=== PATIENT | female | born 1955 | race Caucasian/White ===

== ENCOUNTER 2016-11-01 13:17 | Inpatient (IN) | payer BC ==
[~2016-11-01] VITALS: Ht 154.9 cm; Wt 94.2 kg
--- NOTE | ~2016-11-01 | CON ---
PATIENT'S NAME: BORA CARRINGTON [facility] AGE: 61 Y [address] ROOM: G6325 [place], [place] [address] LOCATION: GPCU ADMIT DATE: 11/01/2016 Consultation DISCHARGE DATE: FAMILY PHYSICIAN: PHYSICIAN, UNKNOWN ATTENDING PHYSICIAN: MATIAS MIRANDA DATE OF CONSULTATION: 11/07/2016 REFERRING PHYSICIAN: Cuba Ramos MD LOCATION: [id number]. REASON FOR CONSULTATION: This is a Palliative Care referral for goals of care, code status, and hospice discussion. HISTORY OF PRESENT ILLNESS: This 61-year-old female was admitted on 11/01/2016 with acute mental status change. She has a history of diabetic peripheral neuropathy with multiple diabetic wounds. Wound ostomy nurses were seeing her for a sacral wound. She has a known history of endometrial cancer, has been seen at the [facility] and she has a history of bilateral BKA. The patient had been declining after [place] and had not been going to work due to her electric wheelchair not working and had been at home, declining, not eating per her friend who comes and checks on her. The patient had not been seen for a couple of days and neighbor went to check on her and found her very confused and she was sent to the [facility] for evaluation. She was seen by the neurologist on 11/03/[address] Canseco who evaluated her decrease in mental status and possible stroke on the posterior portion of the brain. On admission, the patient did not have any fevers and continued to be confused. She was started on broad-spectrum antibiotics and was being evaluated for acute stroke in the harry-occipital area. Neurology, Dr. Canseco had seen and there was no finding for the patient's altered mental status. CT of the abdomen and pelvis was done that revealed multiple metastatic lesions in the liver and increased ascites. Paracentesis was done on November 01, no peritonitis noted and culture was negative. Infectious Disease consultation was also done to evaluate antibiotics and infection. The patient does open eyes; does not track; does moan as if in pain; unable to answer questions appropriately; is able to blink her eyes on command 1 time, but not consistently; has a very weak squeeze in left hand, but not consistently; right arm is flaccid. No nausea or vomiting. No shortness of breath noted. PAST MEDICAL HISTORY: Diabetes, status post bilateral BKA, endometrial cancer, depression, anxiety, and status post hysterectomy. PATIENT'S NAME: BORA CARRINGTON [facility] AGE: 61 Y [address] ROOM: G63[address] [place], [place] [address] LOCATION: GPCU ADMIT DATE: 11/01/2016 Consultation DISCHARGE DATE: FAMILY PHYSICIAN: PHYSICIAN, UNKNOWN ATTENDING PHYSICIAN: MATIAS MIRANDA SOCIAL HISTORY: The patient lives on her own. Works at [employer] in the [employer] 3 days a week. She is a smoker, unknown amount, had told by wound care ostomy nurses that she does not smoke, friend says she does and he does not know how much, she continues to smoke. No alcohol history. FAMILY HISTORY: Unable to obtain records. None on chart. CURRENT MEDICATIONS: 1. Insulin detemir 8 units daily subcutaneous, moderate sliding scale insulin. 2. Lactulose 30 mL every 8 hours p.r.n. 3. Rifaximin 550 mg b.i.d. 4. Protonix 40 mg daily. 5. Peridex t.i.d. REVIEW OF SYSTEMS: Complete review of systems was done, chart was reviewed, unable to obtain all due to the patient's decrease in cognitive status. PHYSICAL EXAMINATION: GENERAL: This is a 61-year-old, frail female, in no acute distress. VITAL SIGNS: Temperature 97.7 axillary, pulse 82, respirations 12, blood pressure 120/63. She is 5 feet 1 inch, weighs 207 pounds with BMI of 37.5. GENERAL: Arouses to stimuli, occasional moan. No verbal response. Appears to have some grimacing and discomfort. Moans with movement. SKIN: Warm and dry. Color pale. HEENT: Normocephalic and atraumatic. Sclerae are nonicteric. Conjunctivae are pale and pink. Mouth is pink and dry. Some exudate noted. LYMPH: No cervical adenopathy or thyromegaly. RESPIRATORY: Clear to auscultation. Breath sounds even and regular throughout. CARDIAC: S1, S2 without murmurs. No bruits. ABDOMEN: Soft, nontender. Positive bowel tones. Last bowel movement was 11/07, had several bowel movements after lactulose was given. NEURO: Slow to respond. No verbal response. Slow to follow any commands and not consistent. MUSCULOSKELETAL: Some slow movement of left arm. Right arm is flaccid. EXTREMITIES: Bilateral BKA, incisions well healed. No redness or edema. Palliative performance scale is 10%, totally bed-bound, unable do any activity, total care, mouth care only, drowsy. PATIENT'S NAME: BORA CARRINGTON [facility] AGE: 61 Y [address] ROOM: [address] [address] LOCATION: GPCU ADMIT DATE: 11/01/2016 Consultation DISCHARGE DATE: FAMILY PHYSICIAN: PHYSICIAN, UNKNOWN ATTENDING PHYSICIAN: MATIAS MIRANDA IMPRESSION: Altered mental status/acute encephalopathy and pain. PLAN: 1. Discussion of chronic condition. Visited with the patient's brother, Caleb Carrington, by phone, phone number is [phone]; discussed knowledge and understanding of the patient's current condition. He had talked with Dr. Ramos, oncologist, extensively yesterday, has been in touch with Dr. Chavis. He has a fairly good understanding of the altered mental status, treating infections, not getting better. He knows about her history of endometrial cancer and diabetes and recent BKA due to peripheral neuropathy. Discussed CT of the abdomen and pelvis and multiple metastatic liver lesions, the patient not eating, the patient not improving with treatment. Overall, he has a very good understanding of the patient's condition and prognosis. 2. Code status and advance directive. The patient is currently a full code. Discussed the patient's values and goals and wishes if with increased metastasis and the patient not waking up. Brother states that he has talked with his sister about her wishes if she would be in the state of not getting better and not being able to wake up that she would not want to live on tubes and would not like having no quality of life. Brother will fax copy of living will to the hospital. GOALS OF CARE: 1. Brother would like to talk with the hospitalist more on condition improving versus going to the [facility] to see if there were other alternatives. 2. Continue treating till talks with the hospitalist. 3. Education given on disease process, prognosis, comfort cares, hospice. 4. No spiritual needs. RECOMMENDATIONS: Possible pain with movement and grimacing, recommended starting on acetaminophen 650 mg every 6 hours p.r.n. pain. We will check with pharmacy due to the patient stating allergic to acetaminophen IV. Pharmacy stated they only had Vicodin down as an allergy for the patient; Home Health had penicillin, erythromycin, morphine, codeine, hydrocodone, acetaminophen, and shellfish. They consider trying acetaminophen to see it if it just upset her stomach or if there was a true allergy to acetaminophen and notes it stated she just had an upset stomach. Encourage brother to call if questions or concerns. Total time was 55 minutes with 45 minutes for counseling and coordination of care. PATIENT'S NAME: BORA CARRINGTON [facility] AGE: 61 Y [address] ROOM: [id number] [place] [id number] [facility] ADMIT DATE: 11/01/2016 Consultation DISCHARGE DATE: FAMILY PHYSICIAN: PHYSICIAN, UNKNOWN ATTENDING PHYSICIAN: MATIAS MIRANDA Thank you for allowing me to assist this patient and family. CONNIE MENDENHALL NP FOR MD JODEE POLLARD/wilder /[id number] d: 11/07/162025 t: 11/21/160, CONSULTATION REPORT
--- NOTE | ~2016-11-01 | CON ---
PATIENT'S NAME: TANA CARRINGTON [facility] AGE: 61 Y [address] ROOM: [address] [place], [place] [address] LOCATION: GPCU ADMIT DATE: 11/01/2016 Consultation DISCHARGE DATE: FAMILY PHYSICIAN: PHYSICIAN, UNKNOWN ATTENDING PHYSICIAN: MATIAS MIRANDA DATE OF CONSULTATION: 11/03/2016 The patient was seen in neurologic consultation on 11/03/2016. REASON FOR CONSULTATION: I was asked to see Ms. Carrington by the hospitalist, Dr. Chavis. This patient has essentially an unknown medical history, but is known to have diabetes. HISTORY OF PRESENT ILLNESS: She is a 61-year-old female patient who lives alone. Apparently, she had not had any contact with family or friends and thus police came to her apartment to see how she was doing. She apparently was found unresponsive, very much like she presented here to our hospital. Also, she has smelled of urine, apparently had wet herself. When they found her, she was sitting in the chair and had not fallen. There is no evidence of injury to her body. When she was transported here to our hospital, a workup ensued, which showed that she had a mild white count elevation with a urinalysis strongly showing urinary tract infection. Furthermore, cultures have come back with Enterococcus and Klebsiella infection, thus she is on day 2 of antibiotics for treating a urosepsis. She has been essentially poorly responsive and extremely tired. She is not moving her bilateral upper extremities even to pain, but does open her eyes somewhat spontaneously. She is not answering questions or following commands, mostly moaning. She was tending to blink to threat in her left visual field, but not in her right. An initial CAT scan of her brain was performed and it was negative for any intracranial process; however, an MRI followed as she was not improving, which does show some serpiginous-like increase in signal on diffusion-weighted imaging. This was seen in the posterior parietal and somewhat into the occipital lobe of the left portion of the brain. The exact vascular territory is unclear as this somewhat straddles the area of both GROCERY CLERK CHECKING and posterior left MCA territory. The findings on diffusion-weighted imaging do seem to be somewhat superficial and high cortical in nature and do not seem to have a very confluent periods. In discussions with Dr. Chavis, I described that these symptoms of stroke would probably not match well with the patient being so obtunded and encephalopathic, as this is one-sided stroke, likely more involving visual field loss and hard to delve with her having such a poor mental status. I would favor that the patient likely still has a urosepsis-type picture. PATIENT'S NAME: TANA CARRINGTON [facility] AGE: 61 Y [address] ROOM: [id number] [place] [id number] LOCATION: GPCU ADMIT DATE: 11/01/2016 Consultation DISCHARGE DATE: FAMILY PHYSICIAN: PHYSICIAN, UNKNOWN ATTENDING PHYSICIAN: MATIAS MIRANDA PRIOR MEDICAL HISTORY: She has a known history of diabetes and likely diabetic ulcers and wounds as well as diabetic neuropathy. Endometrial cancer, unknown if this is metastatic. A questionable history of atrial fibrillation. MEDICATIONS: Currently include, 1. Vancomycin 1.5 g IV q.18 hours. 2. Levofloxacin 750 mg IV daily. 3. Enoxaparin 40 mg subcu daily. 4. Pantoprazole 40 mg IV daily. 5. Regular insulin sliding scale q.6 hours. FAMILY HISTORY: Unobtainable. SOCIAL HISTORY: Very limited, we know that she lives alone. There is no known alcohol abuse. The son was spoken to gave little more information concerning a prior medical history. REVIEW OF SYSTEMS: The patient presented obtunded, likely with a picture of urosepsis. She has slight white count elevation. A complete metabolic panel reveals a creatinine to be normal. There is elevation in AST as well as alkaline phosphatase consistent with possibility of metastatic disease to the liver that was seen on a hepatic ultrasound. Troponin, troponin, CPK total, and CPK-MB were all negative. TSH and hemoglobin A1c were within normal limits. The rest of the review of systems was limited due to essentially unknown medical history other than her known diabetes. PHYSICAL EXAMINATION: GENERAL: The patient was alerting only to a strong sternal rub. She would open her eyes briefly, look forward mostly, and moan. She did not activate her extremities, she did not squeeze my hand on command. She seemed to blink to threat, mostly in her left visual field, not in her right. She had normal tone. VITAL SIGNS: Stable. IMPRESSION: Neurologically, this 61-year-old patient who essentially remains with a poor mental status though she is 2 days into receiving antibiotics for urinary tract infection. The leading issue for her mental status being so poor is likely still the result of this infection. I reviewed over the findings on the MRI with Dr. Chavis. The findings do not quite explain her mental status PATIENT'S NAME: TANA CARRINGTON [facility] AGE: 61 Y [address] ROOM: [place] [address] [facility] ADMIT DATE: 11/01/2016 Consultation DISCHARGE DATE: FAMILY PHYSICIAN: PHYSICIAN, UNKNOWN ATTENDING PHYSICIAN: MATIAS MIRANDA being obtunded and with a stroke to the posterior portion of the brain, particularly the occipital lobe and posterior parietal region, this would have more of an affect on her vision than on her level of alertness. It is quite possible that these MRIs under-showing some more involvement of the brain in a confluent stroke. Because of the nature of a background malignancy, we should do an MRV, venogram of the brain to rule out any evidence of a cortical venous thrombosis in the brain. Furthermore, let us get an MRA of the brain to look for any evidence of a focal stenosis to the intracranial blood vessels of the left MCA or left GROCERY CLERK CHECKING region. I do believe that with time, the patient will likely improve her mental status, as her other findings on laboratory results do seem to be quite stable. Continue to follow up with the Hospitalist team concerning Ms. Tana Carrington's neurologic status. MD YASEMIN STEELE/wilder /[id number] d: 11/03/162012 t: 11/07/16 1411, CONSULTATION REPORT
--- NOTE | ~2016-11-01 | CON ---
PATIENT'S NAME: BORA CARRINGTON [facility] AGE: 61 Y [address] ROOM: [address] [place], [place] [address] LOCATION: GPCU ADMIT DATE: 11/01/2016 Consultation DISCHARGE DATE: FAMILY PHYSICIAN: PHYSICIAN, UNKNOWN ATTENDING PHYSICIAN: MATIAS MIRANDA DATE OF CONSULTATION: 11/07/2016 REFERRING PHYSICIAN: Cuba Ramos MD REASON FOR CONSULTATION: Hypernatremia. REFERRING PHYSICIAN: Dr. Haley Chavis. HISTORY OF PRESENT ILLNESS: A 61-year-old lady with history of endometrial/endometrioid cancer with peritoneal and hepatic invasion, admitted to our hospital after she was found unresponsive. While being managed in the PCU, her sodium slowly increased to 154. Nephrology consultation has been called for similar reason. As per the chart record, she has not had any contact with family or friends for the last couple of days before admission, and police came to her apartment and was found her unresponsive down for at least few days, smelled of urine, no evidence of injury to the body, transported her to the hospital, showed a mild white blood cell count elevation, possibly secondary to urosepsis. Culture came back Enterococcus and Klebsiella, got treated with antibiotic, however, the patient's mental status did not improve with the treatment. Afterwards, the patient had an MRI, which showed left hippocampal and occipital stroke, but that stroke would not explain the degree of altered mental status/confusion. Otherwise, she is hemodynamically stable, not on any feeding. She was thought to have significant metabolic encephalopathy/hepatic encephalopathy from metastatic disease from the endometrial cancer and was started on lactulose for the last few days and was getting severe amount of osmotic diarrhea therapeutically to improve the mental status. However, till now, there was no significant improvement. Meanwhile, the sodium, which was 143, 144 a couple of days ago, now has increased to 154. The patient is currently not on tube feeding as mentioned above. No other significant medications noted or not on diuretic. The patient is completely confused, even withdraws to pain on the right side but does not do anything on the left. No response to voice call. REVIEW OF SYSTEMS: Could not be obtained due to the patient's mental status. PAST MEDICAL HISTORY: Endometrial cancer. The rest of the medical history could not be obtained due to the patient's mental status. PAST SURGICAL HISTORY: Could not be obtained due to mental status. FAMILY HISTORY: Could not be obtained due to the patient's mental status. SOCIAL HISTORY: Could not be obtained due to the patient's mental status. LABORATORY STUDIES: CBC: Hemoglobin of 12, WBC 8.9, platelet 137, creatinine 0.9. Sodium 154, potassium 3.5, chloride 122, CO2 of 23, glucose 139, BUN 25, calcium 10.6, anion gap 12.5, INR 1.19. Procalcitonin 0.25.PATIENT'S NAME: BORA CARRINGTON [facility] AGE: 61 Y [address] ROOM: [place] [address] LOCATION: GPCU ADMIT DATE: 11/01/2016 Consultation DISCHARGE DATE: FAMILY PHYSICIAN: PHYSICIAN, UNKNOWN ATTENDING PHYSICIAN: MATIAS MIRANDA PHYSICAL EXAMINATION: VITAL SIGNS: Blood pressure 110 over 60s, pulse 90s, respiratory rate 14 to 18, afebrile currently. GENERAL: The patient is confused, not responsive to voice command, only withdraws to pain on the right side, not on the left. HEAD: Dry mucous membrane. Bilateral PERRLA, EOMI. NECK: No JVD, thyromegaly or lymphadenopathy. CVS: S1 and S2 normal, regular rate and rhythm. No murmur, rub, gallop. CHEST: Bilateral air entry equal. No wheeze or rales. ABDOMEN: Soft, nontender, nondistended. Bowel sounds present. EXTREMITIES: No cyanosis, clubbing, jaundice. No dependent edema. MUSCULOSKELETAL: No limitation of range of motion. SKIN: No pallor, cyanosis, icterus. HEALTH CARE AIDE: Confused and withdraws to pain only on the right side, no response on the left. ASSESSMENT AND PLAN: 1. Hypernatremia, possibly secondary to free water loss from osmotic diarrhea. Currently not on tube feed but primary team is planning to start. Free water deficit at this point is about 2 L ongoing loss and insensible loss will be around 3 to 3.5 L currently on D5 at a rate of 150. I will continue on the D5 for now. With the initiation of tube feeding, we may need to go up on the free water flushes through the NG tube. We will check serum osmolality, urine osmolality at this point. Closely monitor serum sodium at least q.12 hourly. 2. Acute kidney injury. The patient's creatinine went up to 1.2 yesterday, however, improved significantly today with a baseline creatinine of 0.8 to 0.9. We will closely monitor renal function along with urine output daily. Please send a UA and urine lytes including sodium, potassium, creatinine osmolality. 3. Altered mental status, possibly secondary to metabolic encephalopathy from hepatic metastasis. However, paraneoplastic syndrome can not be excluded at this point. Paraneoplastic panel is pending at this point. I do not believe there is any significant role of hypernatremia and confusion. I spoke with Neurology, Dr. Canseco. As per him, the CVA could not explain current mental status, and there will be no problem with dropping the serum sodium to say at least 145 to 147 level without causing any cerebral edema. 4. Endometrial/endometroid cancer with peritoneum and hepatic metastasis. Dr. Ramos is on the case. Currently progressive enough that no further workup is necessary. Primary team is contemplating palliative/hospice care for the patient. Currently, family is still deciding about the goals of care. Thank you for allowing me to participate in this patient's care. We will closely monitor the patient's progress along with you. MARY BARRETO MD /modl /[id number] d: 11/07/162321 t: 11/10/16 194, CONSULTATION REPORT
--- NOTE | ~2016-11-01 | ECHO ---
Transthoracic Echocardiography Report (TTE) Demographics Patient Name BORA CARRINGTON Date of Study 11/04/2016 L Patient Number [id number] Visit Number [id number] Date of 1955 Room Number G6325 Accession Number [id number] Gender Female Age 61 year(s) Referring Faby Pineda Metal Stamping Machine Operator Jonathan Medeiros RVT, Physician MD ANA Kelly Physician Interpreting Ramon Gates MD Resident Inspector Physician Supervising Ordering Physician Palmira Martinez MD/EDIE MCKINNON Nurse Stress Site Safety Coordinator Conclusions Contractility Score Summary Normal Left Ventricular contractility was noted. Summary Technically difficult exam. The estimated left ventricular ejection fraction is 55%. The left ventricle is normal in size . Mild concentric left ventricular hypertrophy. Diastolic assessment reveals Grade I diastolic dysfunction. No significant valvular abnormalities. The aortic root appears mildly dilated. The maximum diameter measures 3.4 cm. Pleural effusion present. Procedure Type of Study TTE procedure:2D Echocardiogram, M-Mode, Doppler , Color Doppler. Procedure Date Date: 11/04/2016 Start: 09:02 AM Study Location: Inpatient Portable Technical Quality: Fair due to lung interference. Indications:CVA. Appropriate Use Criteria: 9 Patient Status: Routine HR: 106 bpm BP: 136/68 mmHg M-Mode/2D Measurements LV Diastolic Dimension: 3.03 cm LV Systolic Dimension: 1.96 cm LV Septum Diastolic: 1.34 cm LV PW Diastolic: 1.28 cm AO Root Dimension: 3.4 cm Cardiac Output: 5.19 l/min AV Cusp Separation: 2 cm RV Diastolic Dimension: 2.59 cm LA volume: 19 ml LVOT: 2 cm RV Base: 3.08 cm LVOT VTI: 15.6 cm RV Mid: 2.93 cm LV Stroke volume: 48.98 ml TAPSE: 1.65 cm TDI-S': 25.2 cm/s Doppler Measurements AV Peak Velocity: 1.26 m/s MV Peak E-Wave: 0.61 m/s AV Peak Gradient: 6.35 mmHg MV Peak A-Wave: 0.81 m/s AV Mean Gradient: 3 mmHg MV E/A Ratio: 0.74 LVOT Peak Velocity: 1.14 m/s MV Deceleration Time: 218 msec TR Velocity:2.44 m/s PV Peak Velocity: 1.24 m/s TR Gradient:23.81 mmHg PV Peak Gradient: 6.15 mmHg Estimated RAP:8 mmHg Estimated PASP: 31.81 mmHg Estimated RVSP: 32 mmHg A' Septal Velocity: 0.1 m/s E' Septal Velocity: 0.08 m/s A' Lateral Velocity: 0.18 m/s E' Lateral Velocity: 0.08 m/s Findings Left Ventricle The left ventricle is normal in size . Mild concentric left ventricular hypertrophy. Diastolic assessment reveals Grade I diastolic dysfunction. Paradoxical septal motion . Right Ventricle Normal right ventricle structure and function. Left Atrium Normal left atrial size. Right Atrium Normal right atrial size. Patient unable to perform sniff test to estimate right atrial pressure. Mitral Valve Mild mitral annular calcification. Trivial mitral regurgitation by color Doppler. Aortic Valve The aortic valve is mildly sclerotic. Tricuspid Valve Trivial tricuspid regurgitation by color Doppler. Pulmonic Valve The pulmonic valve is not well visualized. Pericardial Effusion No evidence of pericardial effusion. Miscellaneous The aortic root appears mildly dilated. The maximum diameter measures 3.4 cm. Patient is noted to be in sinus rhythm and no evidence of apical echo density to suggest thrombus. Pleural Effusion Pleural effusion present. Contractility Score LV regional wall motion:(0-Non visualized 1-Normal 2-Hypokinesis 3-Akinesis 4-Dyskinesis 5-Aneurysm) Signature dtt: Kody Navarro (cardio) dtd: 11/04/16 0902 Physician Self Edit
--- NOTE | ~2016-11-01 | NDGEN ---
PATIENT'S NAME: CHARISSA [facility] AGE: 61 Y [address] ROOM: [place] [address] LOCATION: GPCU ADMIT DATE: 11/01/2016 Neurodiagnostics DISCHARGE DATE: FAMILY PHYSICIAN: , ISIDORO ATTENDING PHYSICIAN: MATIAS MIRANDA PROCEDURE: ELECTROENCEPHALOGRAM DATE OF PROCEDURE: 11/04/2016 TIME: 2:10 p.m. INDICATION: This is a 61-year-old female patient who was found in her home after 2 days, of no contact with persons. She was found in her home unresponsive and moaning for the past 2 days. She has been treated for urosepsis, but has been essentially encephalopathic and unable to communicate and essentially somnolent. DESCRIPTION: The general background rhythm reveals a slow background rhythm of high amplitudes up to nearly 50-70 microvolts. The background rhythm had variability between a slow delta background of 3-4 hertz up to a speed of theta rhythm of around 7 hertz. This background rhythm would be considered slow for an adult of her age. There did not appear to be any particular rhythmic activity and these high amplitude findings did not change with photic stimulation. The patient remained obtunded and nonreactive during the time of the study. There did not appear to be any firm epileptiform features seen and no seizures were recorded. IMPRESSION: This is an abnormal electroencephalogram due to general background rhythm which was very slow and abnormal for the patient's age. Though the background rhythm remained slow and stable, there was no epileptiform feature seen and no clear seizures were recorded. The general background rhythm slowing can be seen in cases of encephalopathy, such as metabolic encephalopathy, infection, some forms of stroke, or as a postictal phenomena. Thus clinical correlation is advised. DIANE ISAAC MD PATIENT'S NAME: CHARISSA BORA L [facility] AGE: 61 Y [address] ROOM: [place] [address] LOCATION: GPCU ADMIT DATE: 11/01/2016 Neurodiagnostics DISCHARGE DATE: FAMILY PHYSICIAN: PHYSICIAN, UNKNOWN ATTENDING PHYSICIAN: MATIAS MIRANDA/wilder /[id number] P dtt: 11/07/16 1416 , DIANE ISAAC dtd: 11/04/166
--- NOTE | ~2016-11-01 | CON ---
PATIENT'S NAME: BORA CARRINGTON [facility] AGE: 61 Y [address] ROOM: [place] [address] LOCATION: GPCU ADMIT DATE: 11/01/2016 Consultation DISCHARGE DATE: FAMILY PHYSICIAN: PHYSICIAN, UNKNOWN ATTENDING PHYSICIAN: MATIAS MIRANDA A consult for Dr. Micheal Chavis, hospitalist. HISTORY OF PRESENT ILLNESS: This 61-year-old lady is referred for rehab evaluation, admitted on 11/01/2016 through ER. She was reportedly unresponsive and still is and was found by the police upon a courtesy checkup. She has history extensive of diabetes type 2, peripheral neuropathy, and status post bilateral below-knee amputations with prosthesis. She was found unresponsive, unable to communicate, unable to respond. She is, at the present time, still unresponsive as I mentioned with catheter and IV line. PHYSICAL EXAMINATION: VITAL SIGNS: Blood pressure 124/68, temperature 97.1, pulse 84, respiration rate 18. She is 5 feet 1 inch tall and weighs 94.2 kg. GENERAL: Reportedly, she has been found unresponsive, soaked in her urine, and I think she has prosthesis, but I could not find them at the present time. NEUROLOGICAL: Pupils are reacting equally. She is moaning on and off. Tongue is dry, and soft palate movement seemingly is symmetrical. No facial droop at the present time, can move all 4 spontaneously. LUNGS: Clinically clear. HEART: Tachycardic. MEDICATIONS: She is on the following medications: 1. Lactated Ringer. 2. Lovenox. 3. Protonix. 4. Dextrose 5%. 5. Merrem. 6. Peridex. 7. NaCl 0.9%. 8. Levaquin. ASSESSMENT AND PLAN: At this time, we will start her on bedside PT, OT, and speech. Please see the orders. PATIENT'S NAME: BORA CARRINGTON [facility] AGE: 61 Y [address] ROOM: [place] [address] LOCATION: GPCU ADMIT DATE: 11/01/2016 Consultation DISCHARGE DATE: FAMILY PHYSICIAN: PHYSICIAN, UNKNOWN ATTENDING PHYSICIAN: MATIAS MIRANDA I will watch her alongside with you, and if she is a good candidate for intensive rehabilitation, I will be happy to take her. Seems to be, at the present time, unable to work; however, we will do as much as possible. Passive to active assistive range of motion to bilateral upper and lower extremities, and we will see how much she can swallow also for safe swallowing. Thank you for this referral. I will be following alongside with you. MD ANNEMARIE JALLOH/modl /[id number] d: 11/03/16 1148 t: 11/04/16 0821, CONSULTATION REPORT
--- NOTE | ~2016-11-01 | CON ---
PATIENT'S NAME: BORA CARRINGTON [facility] AGE: 61 Y [address] ROOM: [place] [address] LOCATION: GPCU ADMIT DATE: 11/01/2016 Consultation DISCHARGE DATE: FAMILY PHYSICIAN: PHYSICIAN, UNKNOWN ATTENDING PHYSICIAN: MATIAS MIRANDA DATE OF CONSULTATION: 11/04/2016 REFERRING PHYSICIAN: Micheal Chavis MD REASON FOR CONSULT: Buttocks ulcers. HISTORY OF PRESENT ILLNESS: This is a 61-year-old female patient who was admitted to [facility] with unresponsiveness. I am familiar with the patient. I have been following her in Outpatient Wound Care since May 2016. I last saw her on October 09, 2016. She has a history of bilateral BKA in October 2015. She subsequently suffered from a bowel obstruction postoperatively. We have been seeing her for abdominal wounds as well as a left stump wound. She has a significant history of type 2 diabetes mellitus, endometrial cancer, depression, anxiety, pulmonary embolism, peripheral neuropathy, and osteomyelitis. Per previous records, the patient was brought to the hospital by EMS after her neighbors noticed that she had not been out for a few days. The patient was positive for a UTI and severe sepsis on admit to the ER. The patient is obtundent and unable to provide a history. PAST MEDICAL HISTORY: Type 2 diabetes mellitus with peripheral neuropathy, pulmonary embolism, endometrial cancer, depression, anxiety, and osteomyelitis. PAST SURGICAL HISTORY: Hysterectomy, bilateral salpingo-oophorectomy, bilateral pelvic and para- aortic lymphadenectomy with sigmoid colon resection with colostomy placement, colostomy reversal, wisdom teeth extraction, appendectomy, cholecystectomy, and bilateral BKA. FAMILY HISTORY: None listed. SOCIAL HISTORY: When I saw her in September, she was still living in [place] by herself. She has previously been visited by Home Health. She had been smoking a few cigarettes per day. ALLERGIES: PATIENT'S NAME: BORA CARRINGTON [facility] AGE: 61 Y [address] ROOM: [place] [address] LOCATION: GPCU ADMIT DATE: 11/01/2016 Consultation DISCHARGE DATE: FAMILY PHYSICIAN: PHYSICIAN, UNKNOWN ATTENDING PHYSICIAN: OLADEJI,MATIAS D PENICILLIN, VICODIN, HYDROCODONE, AND ERYTHROMYCIN. CURRENT MEDICATIONS: Please refer to the medication administration record. REVIEW OF SYSTEMS: Unable to complete due to the patient's mental status. PHYSICAL EXAMINATION: VITAL SIGNS: Temperature 99.2, pulse 107, respiration 20, blood pressure 129/66, and pulse oximetry 95% on room air. Height 5 feet 1 inch and weight 94.8 kg. GENERAL: The patient only responds to painful stimuli. HEENT: Head: Normocephalic, atraumatic. Dry oral mucosa. ABDOMEN: Soft and nontender. EXTREMITIES: Bilateral below-knee amputations noted. Bilateral stumps intact. SKIN: Skin denudement noted to folds, left side worse than right. Abdomen wounds closed. Full-thickness pressure ulcers with associated deep tissue injury to right and left buttocks, left buttocks is worse than right. No induration. Linear purple richard to left buttocks. LABORATORY DATA: White blood cell count 9.2, hemoglobin 11.9, hematocrit 37.8, platelets 132. Sodium 147, potassium 4.4, chloride 117, bicarb 22, BUN 27, creatinine 0.8, glucose 111. Procalcitonin 10.55, and ammonia 25. ASSESSMENT AND PLAN: Again, this is a 61-year-old female patient who was admitted to [facility] with unresponsiveness. I am familiar with the patient as I have been following her in outpatient wound care for abdominal wounds. 1. Stage III full-thickness buttocks ulcers, present on admission with associated deep tissue injury. We will initiate pressure redistribution measures, instruct nursing to turn the patient in bed q.2 hours side to side. Nursing is to apply Aloe [place] moisture barrier q.i.d. and p.r.n. incontinence to the site. I ordered a dietary consult. We will be more appropriate when the patient is alert. Deep tissue injuries may continue to demarcate. The patient is currently on an Isoflex mattress. Moisture controlled with Alfonso catheter. 2. Intertrigo to skin folds. We will apply Aloe moisture barrier cream at this time. May need antifungal in the future. We will continue to monitor. 3. Severe sepsis secondary to urinary tract infection. Hospitalist is managing. The patient is on IV antibiotics. PATIENT'S NAME: BORA CARRINGTON [facility] AGE: 61 Y [address] ROOM: [id number] [place], [place] [address] LOCATION: [facility] ADMIT DATE: 11/01/2016 Consultation DISCHARGE DATE: FAMILY PHYSICIAN: PHYSICIAN, UNKNOWN ATTENDING PHYSICIAN: MATIAS MIRANDA 4. Type 2 diabetes mellitus with peripheral neuropathy. The patient is on sliding scale insulin. I would like to thank Dr. Chavis for this consultation. LILIANA KLEIN APRN FOR MD MICHA COWAN/wilder /[id number] d: 11/04/16 2243 t: 11/15/16 1229, CONSULTATION REPORT
--- NOTE | ~2016-11-01 | HP ---
PATIENT'S NAME: BORA CARRINGTON [facility] AGE: 61 Y [address] ROOM: [place] [address] LOCATION: GPCU ADMIT DATE: 11/01/2016 History & Physical DISCHARGE DATE: FAMILY PHYSICIAN: , ISIDORO ATTENDING PHYSICIAN: MATIAS MIRANDA DATE OF SERVICE: CHIEF COMPLAINT: Obtundation. HISTORY OF PRESENT ILLNESS: This is a 61-year-old female with diabetic peripheral neuropathy and multiple lower extremity diabetic wounds, who is brought into the emergency room of [facility] by the EMS team who were called after neighbors had not seen the patient for a couple of days. Unable to obtain history from the patient currently as she is currently still obtunded, history as given to me by the ER doc who reports that the patient was brought in after neighbors had not seen her for a couple of days. On arrival of the patient to the ER, she was obtunded. She was able to open her eyes spontaneously, but was nonverbal, and she was drenched in urine upon arrival, and the ER doctor did speak with a brother who claims to be the POA, but does not reside with the patient. The patient lives on her own. So, early investigation which was done in the ER, the CT of the head, which was done essentially, did not show any acute changes. Urine did show sign of UTI, and also an elevation in the procalcitonin level as well up to 10. REVIEW OF SYSTEMS: Unable to obtain currently as the patient is currently still obtunded. Oxygen saturation on room air is stable. PAST MEDICAL HISTORY: As per old chart includes diabetes, diabetic nephropathy, history of recurrent diabetic ulcers, status post bilateral below-knee amputation, endometrial cancer, depression, and also anxiety. PAST SURGICAL HISTORY: Includes partial hysterectomy and bilateral below-knee amputation. SOCIAL HISTORY: The patient lives on her own. Per record, she continues to smoke; does not drink alcohol. FAMILY HISTORY: Unable to obtain and none in the records. PATIENT'S NAME: BORA CARRINGTON [facility] AGE: 61 Y [address] ROOM: [place] [address] LOCATION: GPCU ADMIT DATE: 11/01/2016 History & Physical DISCHARGE DATE: FAMILY PHYSICIAN: PHYSICIAN, UNKNOWN ATTENDING PHYSICIAN: MATIAS MIRANDA PHYSICAL EXAMINATION: VITAL SIGNS: In PCU, temperature 98.9, respiratory rate 24, oxygen saturation 94% on room air, and blood pressure 137/75. GENERAL: Reveals a female who is unkept with a malodorous smell emanating all around the patient. She is obtunded. She moans to sternal rub and tries to localize pain with the left hand, though she moves all her extremities. NEUROLOGIC: Unable to obtain right now as the patient is pretty obtunded. HEENT: Normocephalic, atraumatic. Pupils: Left pupil is reactive to light, about 3 mm. Right is about 4, reactive to light. Pharynx: Mucosa is very dry. She has old dry blood stuck on her teeth with a very malodorous smell coming out from her mouth and generally all around her. Ears, no obvious ear discharge or drainage. CARDIOVASCULAR: Normal S1 and S2. Regular rate and rhythm. CHEST: Clear to auscultation bilaterally. ABDOMEN: Soft, nondistended. No area of tenderness. No palpable organomegaly. Positive bowel sounds. EXTREMITIES: She has bilateral below-knee stumps, which appear clean. There is no area of erythema. No joint swelling or erythema or tenderness. SKIN: She has a scab wound to the skin around her tailbone. There is no skin breakdown. LABORATORY DATA: ABG: PH 7.40, pCO2 of 27, pO2 of 75, bicarb 16.6. Lactic acid 1.19. Ammonia 30. Troponin less than 0.040. WBC 14.6, H and H 13.6/45.1, platelet 221. Sodium 146, creatinine 1.2, BUN 49, glucose 185, potassium 4.4, chloride 117, CO2 of 19, calcium 11.0. Liver functions: AST 250, alkaline phosphatase 263, total bilirubin 1.5. INR 1.77. UA: Leukocytes 100, turbid 4+, nitrite positive, wbc 10 to 20, bacteria many. CRP 8.9. Prolactin 10.4. Procalcitonin 10.72. Neutrophil differential 81.3. RADIOLOGY: Chest x-ray is negative. CT of the head without contrast: Moderate cerebral atrophy. No acute CT findings. Chest x-ray: Normal chest. No change. ASSESSMENT AND PLAN: This is a 61-year-old female, who was brought in for obtundation. 1. Acute encephalopathy, present on admission. Differential, this is likely secondary to severe sepsis from urinary tract infection, complicated with severe dehydration. We will hydrate the patient and treat her sepsis and see if there will be an improvement in her mental status, and will also get an MRI of the brain without contrast to rule out any ischemic stroke. 2. Severe sepsis, present on admission. Source likely from urinary tract infection. We will continue the patient on meropenem, and we will start PATIENT'S NAME: BORA CARRINGTON [facility] AGE: 61 Y [address] ROOM: [place] [address] LOCATION: GPCU ADMIT DATE: 11/01/2016 History & Physical DISCHARGE DATE: FAMILY PHYSICIAN: PHYSICIAN, UNKNOWN ATTENDING PHYSICIAN: MATIAS MIRANDA her on Levaquin, and we will follow up on the results of the urine culture and blood culture. 3. Acute kidney injury, likely prerenal from severe dehydration. 4. Diabetes type 2 with peripheral neuropathy. Because we are going to keep the patient n.p.o. now, we will monitor the blood sugar closely, and if she develops hyperglycemia, we will most probably start her on insulin drip given the fact that she is severely dehydrated. 5. Hypernatremia, present on admission, mild, likely secondary to severe dehydration and loss of insensible water. For now, we will try and hydrate the patient with normal saline and monitor her sodium level on the next blood check. If sodium continues to elevate, then we will start her on D5 water and at that point start her on the insulin drip. Advanced directives as per the POA, the brother, whom the ER doctor spoke to; says that for now the patient would want everything to be done, but however he will look for document as regarding what her wishes are. MD FLOYD WHITE/wilder /[id number] D: [id number] T: [id number] HISTORY & PHYSICAL
--- NOTE | ~2016-11-01 | DS ---
PATIENT'S NAME: BORA CARRINGTON [facility] AGE: 61 Y [address] ROOM: [id number] [place], [place] [address] LOCATION: GPCU ADMIT DATE: 11/01/2016 Discharge Summary DISCHARGE DATE: 11/13/2016 FAMILY PHYSICIAN: Physician, Unknown ATTENDING PHYSICIAN: Yesenia Hobbs PRINCIPAL DIAGNOSES: 1. Acute encephalopathy secondary to multiple factors. 2. Severe sepsis secondary to acute cystitis/pyelonephritis. 3. End-stage liver disease secondary to metastatic liver disease. 4. 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 5. Severe diabetes mellitus, insulin-dependent, status post bilateral below- knee amputations. 6. 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 HOSPITAL COURSE: A 61-year-old lady with a past medical history of bilateral knee amputation as well as recurrent metastatic carcinoma likely secondary to gynecological lesion underwent chemo and radiation in the past, was admitted from home after her neighbors did not see her for more than 2 days. She was found to be in acute metabolic encephalopathy. Her GCS was 9 and waxed and waned during the course of the hospitalization, but never falling below 8. Initial CAT scan was done, which did not reveal any significant finding. An MRI was done, which did show occipital stroke on the left side as well as left hippocampal stroke. This case was discussed with Radiology as well as Neurology and the extent of the stroke was not big enough to explain her encephalopathy. She was treated for acute cystitis/pyelonephritis. This treatment failed to improve her metabolic encephalopathy. Given she had hepatic encephalopathy as well, she was given lactulose as well as rifaximin with good stool output, but without any improvement in her mental status. A lumbar tap was also done in order to find out any encephalitis or meningitis as the cause of this encephalopathy, but spinal tap failed to show any encephalitis or meningitis. She was also found to have ascites, secondary to her end-stage liver disease, which was tapped by Interventional Radiology as a therapeutic purposes. Initially, paracentesis for diagnostic purposes was done by myself and was negative for any atypical cells as well as any spontaneous bacterial peritonitis. The patient's family, Caleb, brother lives in [place] and was continuously updated on her condition. After about 1 week of all the aggressive treatments, the case and the prognosis was discussed with the brother, Caleb, which did agree to make her comfort care at that point and Infectious Disease, Hematology/Oncology, and Nephrology consultations were also obtained and they all recommended hospice and palliative care given her guarded prognosis in the future. The patient was put on hospice as well as comfort care during the course of the hospitalization and then the patient in this hospitalization. PATIENT'S NAME: BORA CARRINGTON [facility] AGE: 61 Y [address] ROOM: [place] [address] [facility] ADMIT DATE: 11/01/2016 Discharge Summary DISCHARGE DATE: 11/13/2016 FAMILY PHYSICIAN: Physician, Unknown ATTENDING PHYSICIAN: Yesenia Hobbs CONSULTATIONS OBTAINED DURING THIS HOSPITALIZATION: 1. Neurology. 2. Hematology/Oncology. 3. Infectious Disease. 4. Nephrology. PROCEDURES DONE DURING THE COURSE OF THE HOSPITALIZATION: Lumbar puncture as well as paracentesis. MD MALIK RAMRIEZ/wilder /[id number] d: 11/26/16 0249 t: 11/27/16 1220, DISCHARGE SUMMARY
--- NOTE | ~2016-11-01 | CON ---
PATIENT'S NAME: TANA CARRINGTON [facility] AGE: 61 Y [address] ROOM: [id number] [place], [place] [address] LOCATION: GPCU ADMIT DATE: 11/01/2016 Consultation DISCHARGE DATE: FAMILY PHYSICIAN: PHYSICIAN, UNKNOWN ATTENDING PHYSICIAN: MATIAS MIRANDA DATE OF CONSULTATION: 11/07/2016 REFERRING PHYSICIAN: Nestor John MD DATE OF SERVICE: 11/07/2016. REQUESTING PHYSICIAN: Arlette Chavis MD HISTORY OF PRESENT ILLNESS: Tana Carrington is a 61-year-old woman with uncharacterized obtundation and endometrial carcinoma. Concern has been raised regarding the possibility of a paraneoplastic syndrome. The history of the present illness is obtained from one of Ms. Carrington's friends, Kalee, who works at [employer], and whose family looks after Ms. Carrington's interests; her brother in [place], [place]; from review of the current and [facility] records; review of the [facility] Hematology/Oncology record; and review of the records forwarded from the [facility] in [place], [place]. Ms. Carrington was basically in her normal state of health until sometime between October 29, 2016 and November 01, 2016. In retrospect, her acquaintances in [place] and her brother and sister think she "did not sound right." The patient was not concerned about how she was doing, and tried to reassure her family that things were steady as she goes. She promised her brother she would call him later in the week, but then did not call. Nobody who knew her had any contact between October 29 and . She did not call anybody to allay her family's concerns that her speech had been slow and slurred. The patient continued to function reasonably well before October 29. 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 She lived alone. She participated in Outpatient Physical Therapy, and was learning how to walk with prosthetics as she is a bilateral odfez-ntj-xile amputee. The patient was still sneaking cigarettes. In any case, on 11/01/2016, the police checked on her welfare. She did not answer the door. She was sitting in a chair, covered in urine, and was completely unresponsive. Her vital signs were normal, and she was maintaining her airway. She was transported to the [facility] Emergency Room, where she was evaluated. The urine sample on 11/01/2016 revealed 5 to 10 hyaline casts and 2+ mucus. A subsequent urinalysis on 11/05/2016 revealed PATIENT'S NAME: TANA CARRINGTON [facility] AGE: 61 Y [address] ROOM: [id number] [place], [place] [address] LOCATION: GPCU ADMIT DATE: 11/01/2016 Consultation DISCHARGE DATE: FAMILY PHYSICIAN: PHYSICIAN, UNKNOWN ATTENDING PHYSICIAN: MATIAS MIRANDA 2 to 5 wbc's and 0 to 2 rbc's and few bacteria. The white count was 14,600 with 81% neutrophils and 11% lymphocytes, the hemoglobin was 13.6 g/dL, the MCV was 76, and the platelets were 221,000. The arterial blood gas revealed the pH was 7.40, the pO2 was 75, and the pCO2 was 27. The lactate was 1.19. The CMS was remarkable for an elevated sodium at 146 mg/dL and a low CO2 combining and a low CO2 concentration. The calcium was elevated at 11, while the albumin was decreased at 2.6 g/dL. No ionized calcium was available. The alkaline phosphatase was elevated at 263 international units/liter, and the AST was elevated at 250 international units/liter. The ALT was 46 international units/liter. The eGFR was 46 mL/m. The BUN was 49 and the creatinine was 1.2. The prolactin was 10.4. The ammonia was 30 micromoles per liter. The serum osmolality was elevated at 321. The acetaminophen and salicylate levels were not elevated. The proBNP level was elevated at 1088 pg/mL. The C-reactive protein was elevated at 8.94 mg/dL and the troponin was normal. The magnesium was within normal limits. The cholesterol was low at 89, the triglycerides were high at 139, and the HDL cholesterol was low at 19. The patient underwent a lumbar puncture on 11/04/2016. The CSF protein was normal at 52 mg/dL and the CSF glucose was 113 mg/dL. The CSF cell count revealed the CSF RBC was 19. The CSF white blood cell count was 0. The urine culture revealed Klebsiella pneumoniae and Enterococcus faecalis on 11/01/2016. The patient was placed on levofloxacin and aztreonam initially, and then on meropenem. The patient has been on acyclovir and rifaximin. The plain films of the chest were unremarkable compared to 08/21/2015. Ultrasound of the abdomen revealed poor visualization of the gallbladder. The liver showed multiple focal lesions compatible with metastatic disease with a ring- type appearance. The hepatic veins were patent. A CAT scan of the brain without contrast revealed moderate atrophy. A CAT scan of the abdomen and pelvis revealed marked increase in liver metastases since an earlier CAT scan on 08/24/2015. There were surgical clips in the retroperitoneum. There was "massive ascites," which displaced bowel loops to the center of the abdomen. A Alfonso catheter was present in the bladder. A CT scan with PE protocol revealed no evidence of a pulmonary emboli. An MRI scan of the brain revealed moderate atrophy with senescent white matter disease. No intracranial hemorrhages were present. Acute left occipital cortical infarct in the distribution of the middle cerebral artery without hemorrhage was noted. An EEG was done and just reveals a diffuse encephalopathy with no evidence of seizure. A paraneoplastic panel is pending. An intracranial MRA/MRV revealed stable ischemia in the left parieto-occipital cortex. There was a negative MRA and negative MRV study. An echocardiogram revealed grade 1 diastolic dysfunction and mild concentric left ventricular hypertrophy. Ms. Carrington does have a history of endometrial carcinoma. This was first symptomatic in the fall of 2008 with vaginal spotting. A Pap smear revealed atypical endometrial cells. In 05/2009, the patient was evaluated for her change in bowel habits and irregular vaginal bleeding, and a CAT scan revealed a 5-cm mass in the distal colon with wall thickening. On 06/06/2009, a colonoscopy PATIENT'S NAME: TANA CARRINGTON [facility] AGE: 61 Y [address] ROOM: [id number] [place], [place] [address] LOCATION: [facility] ADMIT DATE: 11/01/2016 Consultation DISCHARGE DATE: FAMILY PHYSICIAN: PHYSICIAN, UNKNOWN ATTENDING PHYSICIAN: MATIAS MIRANDA was suspicious for adenocarcinoma, but biopsies were negative. On 07/10/2009, an endometrial biopsy was compatible with grade 2/3 endometrioid adenocarcinoma of the endometrium. On 08/13/2009, the patient underwent an exploratory laparotomy, total abdominal hysterectomy, bilateral salpingo- oophorectomy, bilateral pelvic and para-aortic lymphadenectomy, sigmoid colectomy with end-colostomy, and excision of periumbilical hernia. The pathology confirmed the presence of grade 2 invasive endometrioid adenocarcinoma involving the endometrium, myometrium, and endocervix. Ten out of twenty nodes were positive for disease. Metastatic adenocarcinoma with invasion of the colon was present. Bilateral ovaries and fallopian tubes were negative for metastatic disease. The postoperative course was complicated by small pulmonary emboli. On 10/15/2009, the patient underwent an exploratory laparotomy, colostomy takedown, biopsy of the presacral tumor and end-to-end anastomosis, sigmoidoscopy, appendectomy, and mobilization of the omentum. The pathology was compatible with endometrioid carcinoma of the endometrium. From 11/16 through 02/27/2010, six cycles of paclitaxel and carboplatin were administered. From 05/14 through 06/26/2010, twenty eight 180 cGy fractions were administered for a total of 54 cGy total external beam radiation therapy to the pelvic nodes coming to the pelvis. This was not administered to the para- aortic nodes. The patient also received three vaginal cylinder implant therapies of 400 cGy each on 06/27/10, 07/04/10, and 07/18/2010. On 07/18/2011, a colonoscopy revealed tumor in the left colon. On 08/05/2011, a left colon resection was performed. There was no evidence of extra- abdominal disease, but postoperative scans revealed new pulmonary nodules. On 09/16/2011, the first of six cycles of nab-paclitaxel was initiated, and the patient received six cycles through 04/02/2012. Her treatment was delayed due to a foot infection, and the patient was placed on anastrozole following chemotherapy. The patient was in a long continuous remission, and her disease-free survival interval was perhaps prolonged because she received very little formal oncologic surveillance at that point. However, on 02/27/2015, an ultrasound of the abdomen revealed a large lesion in the liver. A CT-guided liver biopsy on 03/06/2015 revealed metastatic well-differentiated carcinoma, and a colonoscopy shortly thereafter showed no evidence of cancer. It should be noted that the liver biopsy revealed the BARD1 mutation. On 04/26/2015, the patient underwent a segmental resection of segments V and of the liver with a cholecystectomy. The surgery revealed poorly PATIENT'S NAME: TANA CARRINGTON [facility] AGE: 61 Y [address] ROOM: [id number] [place], [place] [address] LOCATION: [facility] ADMIT DATE: 11/01/2016 Consultation DISCHARGE DATE: FAMILY PHYSICIAN: PHYSICIAN, UNKNOWN ATTENDING PHYSICIAN: MATIAS MIRANDA differentiated adenocarcinoma and the margins were negative. The patient was placed on megestrol acetate 80 mg p.o. b.i.d., and has been taking that medication since that time. Her oncologic followup has been somewhat disjointed because of the difficulty traveling to [place] and because the patient has had serious orthopedic complications such as osteomyelitis requiring [id number]-[id number] amputations. ACTIVE PROBLEMS, CHRONIC AND DIAGNOSED: 1. Class II obesity. On 11/01/2016, the patient weighed 37.5 kg/m2. The patient has lost 91 pounds since April 2012. 2. Type 2 diabetes mellitus complicated with diabetic foot ulcers and peripheral neuropathy and Charcot joints. The diabetes mellitus has not been labile, and her brother believes it has not been complicated with other diseases. 3. Tobacco abuse. The patient smoked one pack per day of cigarettes for 40 to 45 years, and continued to smoke intermittently, though she tried to conceal it from her friends. 4. Grade 1 diastolic dysfunction and concentric LVH noted on echocardiogram. 5. Decubitus ulcers, stage 3, near the bilateral sacrum in addition to ulcers in the lower abdominal wound. 6. Migraine headaches listed as a diagnosis. 7. Anxiety/depression listed as a diagnosis. 8. Atherosclerotic cerebrovascular disease. The patient has a left occipital infarct involving the hippocampus. However, gastric polyposis was noted on an upper GI endoscopy in August 2015. These were hyperplastic. 9. Moderate cerebral atrophy, cerebellar atrophy, and senescent white matter disease noted on scan. ACUTE MEDICAL ILLNESSES (RESOLVED), PAST SURGERIES, AND INJURIES: 1. In 2009, total abdominal hysterectomy and bilateral salpingo-oophorectomy with bilateral pelvic and para-aortic lymphadenectomy with sigmoid colon resection with colostomy. 2. In 2009, colostomy reversal with appendectomy. 3. In 2011 - colonoscopy followed by left colon resection. 4. In 2015 - small bowel resection required due to partial small bowel obstruction from adhesions. 5. In 2016, bilateral below-knee amputation complicated by a long period of convalescence. The patient was in the [facility] almost until July of 2015. MEDICATIONS UPON ADMISSION: 1. Acetaminophen. 2. Apixaban. 3. Docusate sodium. PATIENT'S NAME: TANA CARRINGTON [facility] AGE: 61 Y [address] ROOM: [place] [address] LOCATION: GPCU ADMIT DATE: 11/01/2016 Consultation DISCHARGE DATE: FAMILY PHYSICIAN: PHYSICIAN, UNKNOWN ATTENDING PHYSICIAN: MATIAS MIRANDA 4. Bisacodyl. 5. Glimepiride. 6. Lactobacillus. 7. Megace 80 mg p.o. b.i.d. 8. Oxybutynin chloride. 9. KCl. 10. Sitagliptin. ADVERSE REACTIONS TO MEDICATIONS, TRANSFUSIONS, AND ALLERGIES: 1. Penicillin, macrolide antibiotics, morphine, codeine, and hydrocodone are all listed as sources of adverse reaction. 2. Transfusions: The patient received four units of packed red blood cells in August of [address] [facility]. Tobacco, one pack per day for 40 to 45 years continues. Alcohol, the patient has been a teetotaler for around 10 to 20 years, and consumed alcohol in moderate components before that. 3. Caffeine. The patient is a "Coca[employer]a junky." She does not drink coffee or tea. 4. Drugs of abuse. The patient probably experimented with illegal drugs, but did not become dependent on them or use them a great deal. IMMUNIZATIONS: Negative flu. Negative Pneumovax. FAMILY HISTORY: Mother of pancreatic cancer and father of lung cancer, and they were both non-smokers. SOCIAL HISTORY: The patient grew up in [place], [place]. Her father was a cardiothoracic surgeon. The patient finished high school, graduated from college with a [employer]. She also got a doctorate. 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 Her brother is a professor, and lives in [place], [place]. Her sister lives in [place]. The patient is not a jainism-goer and will not avail herself of pastoral care. Her mother two to three years ago in [place]. REVIEW OF SYSTEMS: Unobtainable from the patient. PHYSICAL EXAMINATION: VITAL SIGNS: Pulse was 92 and regular, blood pressure was 115/65, respiratory rate was 14, temperature was 98.8, and SpO2 was 98% on room air. Height is 61 inches, weight is 94.8 kg (209 pounds), and BMI is 39.2 kg/m2. GENERAL: Well-developed, obese, 61-year-old female, in no acute distress. The patient is unarousable. PATIENT'S NAME: TANA CARRINGTON [facility] AGE: 61 Y [address] ROOM: [address] [address] LOCATION: [facility] ADMIT DATE: 11/01/2016 Consultation DISCHARGE DATE: FAMILY PHYSICIAN: PHYSICIAN, UNKNOWN ATTENDING PHYSICIAN: MATIAS MIRANDA HEENT: Furrowed tongue. LYMPH NODES: None palpable. SKIN: Seborrheic keratoses on the face. CHEST: Clear anteriorly. CARDIOVASCULAR: Regular rhythm with no murmurs, bruits, or adventitious sounds. BREASTS: No masses. ABDOMEN: Healed surgical scar running from the southwest to northeast on the right upper quadrant, and healed vertical scar running from the mid- epigastrium to the symphysis pubis, just to the left of midline. The patient has pronounced hepatomegaly. The liver is palpable 3 cm above the umbilicus. GENITALIA AND RECTAL: Alfonso catheter was in place. EXTREMITIES: Status post bilateral knee amputations. NEUROLOGICAL: The both upper extremities are flaccid. A nasogastric tube is in place. IMPRESSION: 1. 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 This tumor has been somewhat indolent over the past seven years, but is now quite extensive. Her prognosis was guarded due to her tumor even prior to this uncharacterized episode. The tumor may be driven by the BARD-1 mutation. 2. The patient's cancer was an independent risk factor over and above her diabetes, hypertension and obesity for her cerebrovascular accident. 3. Her infarct was in the thalamic area, which one would expect to impact long-term memory and emotional tone, but not necessarily lead to obtundation. The encephalopathy could be metabolic. She might have been hypoglycemic when she lost consciousness. She is hypercalcemic and her ionized calcium may be quite elevated considering her hypoalbuminemia. 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 4. This is probably not a neurologic paraneoplastic syndrome. Paraneoplasia is not common in patients with endometrial carcinoma. Her CSF was unremarkable, and the progression of her obtundation has been rapid. Her underlying health is poor. She had a presumably serious stroke. She may have been hypoglycemic, and she certainly is hypercalcemic, which can lead to drowsiness. 5. A paraneoplastic panel is pending. For practical purposes, finding a paraneoplastic syndrome will probably not improve her prospects. The patient has been heavily pre-treated for her endometrial cancer and has multiple comorbidities. Unless she makes a remarkable recovery, best supportive care with Hospice will be warranted. RECOMMEND: DIAGNOSTIC: 1. Palliative Care consult. 2. Await the paraneoplastic panel. TREATMENT: No definitive antineoplastic therapy. The megestrol is clearly not active at PATIENT'S NAME: TANA CARRINGTON [facility] AGE: 61 Y [address] ROOM: [place] [address] LOCATION: [facility] ADMIT DATE: 11/01/2016 Consultation DISCHARGE DATE: FAMILY PHYSICIAN: PHYSICIAN, UNKNOWN ATTENDING PHYSICIAN: MATIAS MIRANDA this point. PATIENT EDUCATION: Discussed these conclusions with the patient's brother and her attending physicians. NESTOR JOHN MD GKB/modl /[id number] CC: MD Jg Marks MD Franz K Murphy, MD Michael Lawson, MD d: 11/08/16 0019 t: 11/08/16 1551, CONSULTATION REPORT
--- NOTE | ~2016-11-01 | ER ---
PATIENT'S NAME: BORA CARRINGTON [facility] AGE: 61 Y [address] ROOM: [place] [address] LOCATION: GPCU ADMIT DATE: 11/01/2016 ER/Outpatient Report DISCHARGE DATE: FAMILY PHYSICIAN: PHYSICIAN, UNKNOWN ATTENDING PHYSICIAN: MATIAS HOBBS CHIEF COMPLAINT: Unresponsive. HISTORY OF PRESENT ILLNESS: The patient was brought in by EMS. Completely unresponsive. She was last heard from 2 days ago. She was checked on by police for a welfare check. She was found to be completely unresponsive, covered in urine, sitting in a chair. She was maintaining her own airway and had normal vital signs. She does not demonstrate any movement for EMS. No interventions were given other than establishment of IV and transported into the emergency department. She also has prostheses of the lower extremities. No other collateral informations immediately available on this patient other than what is documented in the record. PAST MEDICAL HISTORY: Notable for significant diabetes in addition to smoking as well as chronic wounds and ulcers and metastatic endometrial disease. MEDICATIONS: As noted in the medical record. ALLERGIES: TO PENICILLIN AND ERYTHROMYCIN WELL SOME OTHER MEDICATIONS. REVIEW OF SYSTEMS: All systems were reviewed and negative with EMS and family, however, it was not complete and thorough as the patient could not participate. PHYSICAL EXAMINATION: VITAL SIGNS: On arrival; blood pressure is 168/81, pulse is 100, respiratory rate is 22, temperature 97.9, SpO2 is 97% on room air. GENERAL: An age appropriate female, completely flaccid in the exam bed with significant odor emanating from her person. NEURO: The patient's eyes are open. I cannot tell if she flutters them to command, however, it appears as though they do move more when asking her to open or close her eyes, as opposed to when we were not engaging her. She will occasionally moans spontaneously. She has no tone in any of her extremities. She has been clearly incontinent of urine for some time. Clothes are soaked in urine. She has some slight withdrawal to painful stimulus and PATIENT'S NAME: BORA CARRINGTON [facility] AGE: 61 Y [address] ROOM: [address] [address] LOCATION: GPCU ADMIT DATE: 11/01/2016 ER/Outpatient Report DISCHARGE DATE: FAMILY PHYSICIAN: PHYSICIAN, UNKNOWN ATTENDING PHYSICIAN: MATIAS HOBBS intermittently has a flexion response to pain stimulus. She is breathing on her own and maintaining her airway adequately. HEENT: Grossly normocephalic and atraumatic. The eyes are PERRL. The oropharynx is very dry and tacky with some dried blood and dried secretions. NECK: Supple. Otherwise, trachea is midline. CHEST: Heart is regular rate and rhythm with no murmurs. LUNGS: Grossly clear to auscultation bilaterally with no rhonchi, wheezes, or rales. ABDOMEN: Obese, nontender, nondistended. No masses, rebound or guarding appreciated. There is an abdominal wound that appears to be well healing. BACK: Without any significant anatomic abnormalities to palpation. There is pressure ulcers on the gluteus and sacral region most prominent on the left side without full thickness involvement. EXTREMITIES: The bilateral upper extremities are grossly normal to inspection and formation. No obvious abnormalities. The bilateral lower extremities are notable for BKA. Some stump wounds which have appeared to be well healed. SKIN: Otherwise warm, dry and intact. LABORATORY DATA AND X-RAYS: Chest x-ray is unremarkable per my read. Head CT without any mass effect, hemorrhage, old stroke or other acute finding. Labs: Urinalysis is notable for 100 leukocytes, positive nitrites, 8 urobilinogen, 25 blood; micro 10-20 wbc's, 2-5 rbc's, 5-10 epithelial cells, many bacteria on a catheterized specimen. CBC: WBC is 14.6, 11.9 neutrophils, hemoglobin is 13.6, and platelets of 221. INR is 1.77, ammonia is 30, D-dimer is 2.51. ProBNP is 1068. CMS: Sodium is 146, potassium 4.4, chloride is 117, CO2 is 19, BUN is 49, creatinine is 1.2. GFR is 46. LFTs are notable for an alkaline phosphatase of 263, AST of 250, procalcitonin is 10.72. Blood gas; pH is 7.40, CO2 is 27, pO2 is 75, bicarb is 16.6, CO2 content is 17, base excess negative 7, sat is 95% on room air and lactate is 1.19. IMPRESSION: 1. Encephalopathy undetermined etiology. 2. Urinary tract infection without severe sepsis. 3. Hypernatremia, mild with hyperchloremia. 4. Diabetes. 5. Elevated INR, possibly secondary to Eliquis. 6. Sacral gluteal pressure ulcers. 7. Urinary incontinence. 8. Elevated AST. 9. Elevated procalcitonin. PATIENT'S NAME: BORA CARRINGTON [facility] AGE: 61 Y [address] ROOM: [address] [address] LOCATION: GPCU ADMIT DATE: 11/01/2016 ER/Outpatient Report DISCHARGE DATE: FAMILY PHYSICIAN: PHYSICIAN, UNKNOWN ATTENDING PHYSICIAN: MATIAS HOBBS EMERGENCY DEPARTMENT COURSE: The patient was seen and evaluated. Her GCS was low, however, she appeared to be maintaining her airway adequately and had otherwise normal vital signs. For that reason, I did not intubate her emergently. The presentation is clearly consistent with an event that happened 24-48 hours ago based on her presentation. We were able to clean her up somewhat. She had no improvement in her mental status while in the emergency department. She does have an elevated D-dimer. However, based on her vital signs, chest x-ray and the remainder of her exam, I do not think she likely has a PE. She does not have any objective finding of DVT. However, she would be at high-risk for same. She also had some decrease in her renal function as I do not know her baseline. I cannot say whether or not that is significant at this time. She does not meet criteria for LINSEY as of now. For encephalopathy, urinary tract infection and very mild metabolic derangement; we will admit her to the Hospitalist Service for further evaluation and treatment with Dr. Hobbs. She did get ciprofloxacin, meropenem and vancomycin for presumed sepsis based on the UTI with elevated procalcitonin and encephalopathy without vital sign abnormalities or significant elevation of leukocytes. Lactate is not consistent with hypoperfusion. Please see hospital course for further evaluation. I did speak at length with the patient's brother, Caleb, who stated that he would be a medical decision maker via phone in [place]. He has given permission to obtain any records necessary based on other hospitalizations in regarding her amputations and/or cancer. He will need to be kept in the loop as well. All questions were answered to the best of my ability for him prior to admission to the hospital. MD DANIA CESPEDES/wilder /[id number] d: 11/02/1611 t: 11/05/16 2222, OUTPATIENT REPORT
--- NOTE | ~2016-11-01 | CON ---
PATIENT'S NAME: [facility] AGE: 61 Y [address] ROOM: [place] [address] LOCATION: GPCU ADMIT DATE: 11/01/2016 Consultation DISCHARGE DATE: FAMILY PHYSICIAN: PHYSICIAN, UNKNOWN ATTENDING PHYSICIAN: MATIAS MIRANDA DATE OF CONSULTATION: 11/06/2016 REFERRING PHYSICIAN: Cuba Ramos MD REFERRING PHYSICIAN: Matias Miranda MD. REASON FOR CONSULTATION: Acute metabolic encephalopathy. HISTORY OF PRESENT ILLNESS: This is a 61-year-old lady with a history of diabetic peripheral neuropathy and multiple diabetic wounds, history of bilateral BKA, and also history of endometrial cancer, was found and brought to the emergency room after a neighbor had not seen the patient for a couple of days. The patient continued to be confused since admission and a detailed history cannot be obtained from the patient. On admission, the patient does not have any fever, mild leukocytosis noted, continued to be confused. Noted that both buttocks have pressure ulcers and also found to have some pyuria. Started on broad-spectrum antibiotics and further evaluation done showed an acute stroke in the parietooccipital area. Neurology has seen the patient and there was nothing that this stroke finding can explain the patient's altered mental status. Also, a CT abdomen and pelvis done showed that liver has acquired multiple metastatic lesions and also ascites noted, status post paracentesis done on 01 of November. Basically, no peritonitis noted and culture was negative. Because of the continuous confusion, planned to have an LP. Also, the patient is currently on IV acyclovir, IV aztreonam, levofloxacin, Zyvox at this point, and also on p.o. rifaximin. ID consultation was requested for further evaluation and management. PAST MEDICAL HISTORY: Diabetes, status post bilateral BKA, endometrial cancer, depression, anxiety, and status post hysterectomy. SOCIAL HISTORY: Current smoker. FAMILY HISTORY: Unobtainable. PATIENT'S NAME: CHARISSA BORA [facility] AGE: 61 Y [address] ROOM: [place] [address] LOCATION: GPCU ADMIT DATE: 11/01/2016 Consultation DISCHARGE DATE: FAMILY PHYSICIAN: PHYSICIAN, UNKNOWN ATTENDING PHYSICIAN: MATIAS MIRANDA CURRENT MEDICINES: Antibiotic loera on, 1. IV aztreonam. 2. Linezolid. 3. Levofloxacin. 4. IV acyclovir. 5. P.o. rifaximin. REVIEW OF SYSTEMS: Cannot obtain. PHYSICAL EXAMINATION: VITAL SIGNS: Blood pressure 157/83, pulse rate 90, respirations 16, and temperature 98.4. GENERAL: Confused. HEENT: No neck stiffness. No stomatitis. LUNG: Clear to auscultation bilaterally. HEART: Regular rhythm and rate. ABDOMEN: Distended. No tenderness. Soft. EXTREMITIES: Bilateral status post BKA. /RECTAL: Buttocks have a stage III pressure ulcer. NEUROLOGIC: Confused. LABORATORY DATA: White blood cells 12.1, hemoglobin 12.1, and platelets 173. BUN 34, creatinine 1.2. Noted elevated alkaline phosphatase 230, AST elevated to 319, and ALT is elevated to 69, total bilirubin is 1.2. Total CK is 28 on 02 of November. A UA done on 05 of November with a white blood cells 2-5; and then on 01 of November, white blood cells 10-20. A blood culture done on 01 of November, no growth. 01 of November urine culture grew Enterococcus faecalis and Klebsiella pneumonia. Enterococcus was sensitive to ampicillin and vancomycin. On 02 of November, tracheal aspirate: Normal upper respiratory maria del carmen. 04 of November, paracentesis culture, no growth. Ascites cell count done on 04 of November showed that total white blood cell is 191, neutrophils 36%. IMAGING STUDY: MRI of the brain done on 02 of November showed acute left occipital infarct in the distribution of the middle cerebral artery without hemorrhage. A CT chest done on 05 of November, PE protocol was negative PE and right lower lobe plate- like atelectasis. No CT findings suggestive of pneumonia. CT abdomen and pelvis done on 04 of November showed that a very extensive homogeneous patchy hypodensity throughout the right lobe of the liver, almost certainly reflecting advanced neoplastic involvement, new massive ascites. No focal fluid collection suggested abscess. Kidneys were normal. PATIENT'S NAME: BORA [facility] AGE: 61 Y [address] ROOM: [place] [address] LOCATION: GPCU ADMIT DATE: 11/01/2016 Consultation DISCHARGE DATE: FAMILY PHYSICIAN: PHYSICIAN, UNKNOWN ATTENDING PHYSICIAN: MATIAS MIRANDA ASSESSMENT AND PLAN: This patient is a 61-year-old lady with a history of endometrial cancer, presented with altered mental status, not sure how long the patient was down, her CK is not elevated, but there is a pressure ulcer on the buttock. Initial evaluation showed mild leukocytosis without fever, had a pyuria, but the chest x-ray with negative pneumonia and the brain MRI showed that acute stroke in the occipital region. Also CT abdomen and pelvis showed that quite metastatic lesion in the right liver and ascites. Ascites taps, no signs of peritonitis and the patient was started with a broad-spectrum antibiotic and now also on IV acyclovir for possible viral meningitis. Per Neurology, the acute stroke location does not explain the patient's altered mental status. From ID standpoint, although the procalcitonin elevated, doubt that any acute infection is ongoing. Elevated procalcitonin can happen from the tissue damage which here most likely the liver metastasis, and the pyuria and urine culture already treated with strong antibiotics and the blood culture has been negative and no fever and the leukocytosis is actually stable. No signs of infection in the ascites either. It is noted that plan for LP soon. RECOMMENDATION: From Infectious Disease loera, I will just continue IV acyclovir and IV meropenem pending the lumbar puncture. If the lumbar puncture does not suggest any bacterial meningitis or herpes simplex infection, then we would recommend to stop all the antibiotics and monitor. I think the altered mental status is multifactorial at this point from the stroke, liver failure, and also stress, but we will make sure that patient does not have any meningitis at this point. So, we will stop IV aztreonam, we will stop linezolid, we will stop levofloxacin, we will continue IV acyclovir pending LP, and we will start IV meropenem 500 mg q.6 hours pending LP. If there are no signs of bacterial meningitis or the herpes simplex virus PCR from the CSF is negative, then we will recommend stopping the acyclovir and meropenem. ID will see in 1 week. Please call ID Service at [phone] if any questions. MD KIMO BARFIELD/modl /[id number] d: 11/06/[id number] t: 11/27/16 1240, CONSULTATION REPORT
[~2016-11-01 13:17] MED LIST changes: -COLACE100 MG PO; -DULCOLAX5 MG PO
[2016-11-01 14:00] LABS: BLOOD URINE 25 /UL (NEGATIVE); GLUCOSE URINE NEGATIVE (NEGATIVE); KETONE URINE 15 mg/dL (NEGATIVE); LEUKOCYTES URINE 100 /UL (NEGATIVE); NITRITE URINE POSITIVE (NEGATIVE); PROTEIN URINE 30 mg/dL (NEGATIVE); SPEC GRAVITY URINE 1.025 (1.003-1.035); UROBILINOGEN URINE 8 mg/dL (NORMAL)
[2016-11-01 14:04] LABS: COLOR URINE YELLOW (YELLOW); TURBIDITY URINE 4+ (CLEAR)
[2016-11-01 14:08] LABS: BACTERIA URINE MANY (NEGATIVE); MUCUS URINE 2+ (NEGATIVE); WBC CLUMPS URINE FEW (NEGATIVE)
[2016-11-01 15:33] LABS: BASOPHIL # 0.1 K/uL (0.0-0.2); BASOPHIL % 0.4 %; EOSINOPHIL % 0.3 %; HEMATOCRIT 45.1 % (33.0-46.0); HEMOGLOBIN 13.6 g/dL (10.0-15.0); IMMATURE GRANULOCYTE # 0.1 K/uL (0.0-0.3); IMMATURE GRANULOCYTE % 0.7 %; LYMPHOCYTE # 1.7 K/uL (0.8-4.0); LYMPHOCYTE % 11.5 %; MCH 22.9 pg (27.0-34.0); MCHC 30.2 gm/dL (32.0-36.5); MCV 76.1 fl (83.0-98.0); MONOCYTE # 0.9 K/uL (0.0-1.0); MONOCYTE % 5.8 %; MPV 10.4 fl (9.4-12.4); NEUTROPHIL # (ANC) 11.9 K/uL (1.8-7.8); NEUTROPHIL % 81.3 %; NRBC % 0 /100WBC (0-0.00); PLATELET COUNT 221 K/uL (150-450); RDW-CV 19.9 % (11.9-14.6); WBC 14.6 K/uL (4.0-11.0)
[2016-11-01 15:34] LABS: RBC 5.93 M/uL (3.50-5.50)
[2016-11-01 15:40] LABS: INR - (THERAPEUTIC) 1.77 (0.92-1.07); PROTIME 18.7 SECONDS (9.8-11.4); PTT 30 SECONDS (25-32)
[2016-11-01 15:53] LABS: ALBUMIN 2.6 gm/dL (3.5-5.0); ALK PHOS 263 IU/L (33-138); ALT 46 IU/L (12-78); ANION GAP 14.4 (10.0-19.0); AST 250 IU/L (10-40); BLOOD UREA NITROGEN 49 mg/dL (6-24); CHLORIDE 117 mMol/L (96-110); CO2 19 mMol/L (22-32); CREATININE 1.2 mg/dL (0.5-1.1); ESTIMATED GFR (MDRD EQUATION) 46; POTASSIUM 4.4 mMol/L (3.7-5.1); SODIUM 146 mMol/L (135-145); TOTAL BILIRUBIN 1.5 mg/dL (0.0-1.5); TOTAL PROTEIN 6.5 g/dL (6.0-8.4)
[2016-11-01 16:29] LABS: BICARBONATE 16.6 mmol/L (18.0-23.0); LACTATE 1.19 mEq/L (0.50-1.60); PCO2 27 mmHg (35-45); PO2 75 mmHg (80-90)
[2016-11-01] MEDS ORDERED: DULCOLAX5 MG PO (17:55)
[2016-11-01] MEDS ORDERED: COLACE100 MG PO (17:55)
[2016-11-01 18:54] LABS: BARBITURATE NEGATIVE (NEGATIVE); COCAINE NEGATIVE (NEGATIVE); OPIATES NEGATIVE (NEGATIVE)
[2016-11-01 18:55] LABS: AMPHETAMINE NEGATIVE (NEGATIVE)
--- NOTE | 2016-11-01 18:59 | NUR ---
Patient admitted to PCU for sepsis/unresponsive at 1700. Patient had not shown up to work x2 days and when checked on patient was found unresponsive. CT head neg. Patient responds at times to pain stimuli otherwise remains obtunded. UA +, henson placed in ED, yellow urine with sediment. ER nurse resports that patient had dried urine all over clothes. Ellen area and buttocks excoriated. IV to R) hand. Attempts made for 2nd IV failed. POCarola is a brother who lives in [place]. Orders for MRI head tonight if able to be done. Accuchecks q4h. Scott foot amputations, prosthesis in room. VS remain stable, 95% on RA. Oral cares completed. Skin and mucous membranes very dry.
[2016-11-01 22:02] LABS: CPK 24 IU/L (21-215)
[2016-11-02 03:47] LABS: BASOPHIL # 0.1 K/uL (0.0-0.2); BASOPHIL % 0.4 %; EOSINOPHIL # 0.1 K/uL (0.0-0.5); EOSINOPHIL % 0.4 %; HEMATOCRIT 41.1 % (33.0-46.0); HEMOGLOBIN 12.6 g/dL (10.0-15.0); IMMATURE GRANULOCYTE % 0.3 %; LYMPHOCYTE # 1.6 K/uL (0.8-4.0); LYMPHOCYTE % 11.3 %; MCH 23.1 pg (27.0-34.0); MCHC 30.7 gm/dL (32.0-36.5); MCV 75.4 fl (83.0-98.0); MONOCYTE % 6.9 %; MPV 10.1 fl (9.4-12.4); NEUTROPHIL # (ANC) 11.1 K/uL (1.8-7.8); NEUTROPHIL % 80.7 %; NRBC % 0 /100WBC (0-0.00); PLATELET COUNT 219 K/uL (150-450); RBC 5.45 M/uL (3.50-5.50); RDW-CV 19.6 % (11.9-14.6); WBC 13.8 K/uL (4.0-11.0)
[2016-11-02 04:05] LABS: CPK 28 IU/L (21-215)
[2016-11-02 04:15] LABS: ALBUMIN 2.4 gm/dL (3.5-5.0); CREATININE 1.1 mg/dL (0.5-1.1); POTASSIUM 4.2 mMol/L (3.7-5.1); TOTAL BILIRUBIN 1.2 mg/dL (0.0-1.5); TOTAL PROTEIN 5.8 g/dL (6.0-8.4)
[2016-11-02 04:19] LABS: ANION GAP 14.2 (10.0-19.0)
--- NOTE | 2016-11-02 05:19 | NUR ---
Significant Event: W/DRAWS TO PAINFUL STIMULI AND AT TIMES WILL OPEN HER EYES. DOES NOT TRACK WHEN EYES OPEN. NO WORDS BUT LOUD MOANS AT TIMES. NA+ LEVEL STILL ELEVATED. NORMAL SALINE WAS STOPPED AND D5W WAS STARTED. REMAINS ON ROOM AIR. PICKETT REMAINS PATENT. SHOWS NO SIGNS/SYMPTOMS OF PAIN. PUPILS REMAIN REACTIVE. THE R) IS SLIGHTLY MORE SLUGGISH THAN THE L). AT 0415, SHE WAS RUNNING A SLIGHT FEVER OF 99.1 AXILLARY WITH A RR OF 32 AND HR OF 114. SHE WAS WARM TO THE TOUCH. HER BLANKETS WERE TAKEN OFF AND WITHIN AN HR HER TEMP WAS 98.8 AND HR WAS 106. STILL TACHYPNIC BUT SATS WERE STILL GREATER THAN 90% ON ROOM AIR. Follow up:
[2016-11-02 11:58] LABS: BICARBONATE 21.6 mmol/L (18.0-23.0); PCO2 29 mmHg (35-45); PO2 77 mmHg (80-90)
--- NOTE | 2016-11-02 12:55 | NUR ---
PATIENT ASSESSMENT HAS BEEN UNCHANGED SINCE ADMISSION TO FLOOR. PATIENTS VITAL SIGNS ARE STABLE AND SATS ARE IN THE MID 90'S. RECIEVED ORDER TO TRANSFER PATIENT TO ICU DUE TO UNRESPONSIVENESS. PATIENT WAS TRANSFERRED TO ICU AND REPORT WAS GIVEN TO JEROME QUIROZ.
--- NOTE | 2016-11-02 13:18 | NUR ---
I HAVE READ AND AGREE WITH CHARTING DONE BY Michelle MUNGUIA STUDENT NURSE.
--- NOTE | 2016-11-02 13:36 | NUR ---
Received OT order. Attempted eval at 1335. Nurse states to hold as patient is "unresponsive" and just transfered from PCU. Jonnathan, OTR/L
[2016-11-02 16:04] LABS: BASOPHIL % 0.4 %; EOSINOPHIL % 0.3 %; HEMATOCRIT 43.1 % (33.0-46.0); HEMOGLOBIN 13.2 g/dL (10.0-15.0); IMMATURE GRANULOCYTE # 0.1 K/uL (0.0-0.3); IMMATURE GRANULOCYTE % 0.5 %; LYMPHOCYTE # 1.2 K/uL (0.8-4.0); LYMPHOCYTE % 10.8 %; MCH 23.3 pg (27.0-34.0); MCHC 30.6 gm/dL (32.0-36.5); MCV 76.1 fl (83.0-98.0); MONOCYTE # 0.8 K/uL (0.0-1.0); MPV 10.1 fl (9.4-12.4); NRBC % 0 /100WBC (0-0.00); PLATELET COUNT 179 K/uL (150-450); RBC 5.66 M/uL (3.50-5.50); RDW-CV 19.6 % (11.9-14.6); WBC 11.1 K/uL (4.0-11.0)
--- NOTE | 2016-11-02 16:07 | NUR ---
Patient transferred to ICU from PCU d/t change in LOC. Admits to ICU unresponsive, on room air, SBP stable, HR tachy at times with occassional PACs. Withdraw to BUE, R) side requires more stimuli. Localizes pain. 2L fluid bolus given. Alfonso patent. ABD ultrasound, EKG, sputum culture completed. Echo and CTA to be completed, ok to hold CTA until after Dr Canseco assesses patient. Follow up: Continue
[2016-11-02 16:41] LABS: CALCIUM 10.4 mg/dL (8.5-10.5); CREATININE 1.2 mg/dL (0.5-1.1)
[2016-11-02 16:42] LABS: ANION GAP 12.3 (10.0-19.0); POTASSIUM 4.3 mMol/L (3.7-5.1)
--- NOTE | 2016-11-03 04:05 | NUR ---
Significant Event: Patient moans when BP cuff goes off or spontaneously. Rests otherwise. Moves left arm spontaneously slighty. Does not follow commands or track when eyes open. Oral cares frequently, dry mouth with an odor. VSYasemin. Naty with marginal UOP. Remains NPO. Follow up: Continue. Transfer when okay with .
--- NOTE | 2016-11-03 06:39 | NUR ---
transfer to pcu. vss. no changes. moans at times. no commands. frequent oral cares.
[2016-11-03 09:30] LABS: BASOPHIL % 0.3 %; EOSINOPHIL # 0.1 K/uL (0.0-0.5); EOSINOPHIL % 0.7 %; HEMATOCRIT 41.1 % (33.0-46.0); HEMOGLOBIN 12.6 g/dL (10.0-15.0); IMMATURE GRANULOCYTE # 0.1 K/uL (0.0-0.3); IMMATURE GRANULOCYTE % 0.7 %; LYMPHOCYTE # 1.2 K/uL (0.8-4.0); LYMPHOCYTE % 10.6 %; MCH 23.2 pg (27.0-34.0); MCHC 30.7 gm/dL (32.0-36.5); MCV 75.8 fl (83.0-98.0); MONOCYTE # 0.8 K/uL (0.0-1.0); MONOCYTE % 7.1 %; MPV 10.1 fl (9.4-12.4); NEUTROPHIL # (ANC) 9.1 K/uL (1.8-7.8); NEUTROPHIL % 80.6 %; NRBC % 0 /100WBC (0-0.00); PLATELET COUNT 161 K/uL (150-450); RBC 5.42 M/uL (3.50-5.50); RDW-CV 19.5 % (11.9-14.6); WBC 11.3 K/uL (4.0-11.0)
--- NOTE | 2016-11-03 09:42 | NUR ---
CONSULT RECEIVED FOR NUTRITION EDUCATION. PT IS NOT APPROPRIATE FOR EDUCATION AT THIS TIME. IF APPROPRIATE, WILL COMPLETE DIET EDUCATION PRIOR TO D/C.
[2016-11-03 09:45] LABS: CALCIUM 10.5 mg/dL (8.5-10.5)
[2016-11-03 09:48] LABS: ANION GAP 11.3 (10.0-19.0)
[2016-11-03 09:49] LABS: POTASSIUM 4.3 mMol/L (3.7-5.1)
[2016-11-03 18:34] LABS: BASOPHIL % 0.2 %; EOSINOPHIL # 0.1 K/uL (0.0-0.5); HEMATOCRIT 36.9 % (33.0-46.0); HEMOGLOBIN 11.2 g/dL (10.0-15.0); IMMATURE GRANULOCYTE % 0.5 %; LYMPHOCYTE # 0.9 K/uL (0.8-4.0); LYMPHOCYTE % 11.4 %; MCH 23.2 pg (27.0-34.0); MCHC 30.4 gm/dL (32.0-36.5); MCV 76.6 fl (83.0-98.0); MONOCYTE # 0.6 K/uL (0.0-1.0); MONOCYTE % 7.4 %; MPV 9.3 fl (9.4-12.4); NEUTROPHIL # (ANC) 6.6 K/uL (1.8-7.8); NEUTROPHIL % 79.5 %; NRBC % 0 /100WBC (0-0.00); PLATELET COUNT 127 K/uL (150-450); RBC 4.82 M/uL (3.50-5.50); RDW-CV 19.1 % (11.9-14.6); WBC 8.2 K/uL (4.0-11.0)
--- NOTE | 2016-11-03 19:37 | NUR ---
Significant Event: Does not follow any commands. Opens eyes at times, does not track. Occasional slight movement to left upper and lower extremities. VSS on RA. Flushed, Tmax 99.1 axillary. Alfonso with 600 output this shift. Bowel sounds rare. Moaning sounds at times. LR at 150 ml/hr. Neuro consult today. Accuchek Q6 hours. NPO Follow up: EEG and MRA tomorrow.
--- NOTE | 2016-11-04 01:28 | NUR ---
Significant Event: Obtunded, opens eyes spontaneously, does not follow commands. Moans occasionally, slightly withdraws and grimaces to painful stimulation. Bilat below the knee amputations. Alfonso patent. Oral cares done with repostioning Q2hrs. Accuchecks Q6hrs. Open areas and redness to buttocks and periarea. No BM this shift, C-Diff sample needed. Follow up: EEG and MRA today.
[2016-11-04 05:07] LABS: BASOPHIL % 0.4 %; EOSINOPHIL # 0.1 K/uL (0.0-0.5); EOSINOPHIL % 0.5 %; HEMATOCRIT 37.8 % (33.0-46.0); HEMOGLOBIN 11.9 g/dL (10.0-15.0); IMMATURE GRANULOCYTE # 0.1 K/uL (0.0-0.3); IMMATURE GRANULOCYTE % 0.8 %; LYMPHOCYTE % 11.1 %; MCH 23.7 pg (27.0-34.0); MCHC 31.5 gm/dL (32.0-36.5); MCV 75.3 fl (83.0-98.0); MONOCYTE # 0.7 K/uL (0.0-1.0); MONOCYTE % 7.8 %; NEUTROPHIL # (ANC) 7.3 K/uL (1.8-7.8); NEUTROPHIL % 79.4 %; NRBC % 0 /100WBC (0-0.00); PLATELET COUNT 132 K/uL (150-450); RBC 5.02 M/uL (3.50-5.50); RDW-CV 19.2 % (11.9-14.6); WBC 9.2 K/uL (4.0-11.0)
[2016-11-04 05:19] LABS: BLOOD UREA NITROGEN 27 mg/dL (6-24); CALCIUM 10.2 mg/dL (8.5-10.5); CO2 22 mMol/L (22-32); CREATININE 0.8 mg/dL (0.5-1.1); ESTIMATED GFR (MDRD EQUATION) > 60
[2016-11-04 05:21] LABS: ANION GAP 12.4 (10.0-19.0); CHLORIDE 117 mMol/L (96-110); POTASSIUM 4.4 mMol/L (3.7-5.1); SODIUM 147 mMol/L (135-145)
[2016-11-04 10:29] LABS: BICARBONATE 20.6 mmol/L (18.0-23.0); LACTATE 1.6 mEq/L (0.50-1.60); PCO2 27 mmHg (35-45); PO2 78 mmHg (80-90)
--- NOTE | 2016-11-04 11:03 | NUR ---
Speech Tx Note: Pt continues to be unresponsive; Attempted to awaken pt but pt did not respond to verbal or tactile cues. Per discussion with pt's RN, pt not ready for evaluation. Will continue to follow and initiate speech/swallow eval when appropriate. Yesenia Parisi M.A. NAYAN-CELLULAR PHONE REPAIRER
--- NOTE | 2016-11-04 14:07 | NUR ---
A-NUTRITION CONSULT RECEIVED TO "SEE AND FOLLOW" PT IS UNRESPONSIVE; DOES NOT FOLLOW COMMANDS. UNABLE TO PARTICIPATE IN SPEECH EVAL. OPEN AREAS TO BUTTOCKS. NO BM SINCE ADMIT MED HX: TYPE II DIABETES; BILAT BKA HT: 61 IN. WT: 94.2 KG. 224% IBW. BMI: 39.6 LABS: NA 147, K+ 4.4, GLU 4.4, BUN 27, ETL MANAGER 0.8, ALB 2.4, CRP 8.94 MEDS: AZACTAM, VANCO, NOVOLOG (MILD SS), LEVAQUIN, PROTONIX DIET RX: NPO EST NUTR NEEDS: 2504-2661 KCALS (15-20 KCALS/KG) 63-84 GM PROTEIN (1.5-2.0 GM/KG IBW) 1 ML FLUID/KCAL D-AT NUTRITION RISK W/INADEQUATE NUTRIENT INTAKE R/T ALTERED LOC AEB INTAKE RECORDS, UNRESPONSIVE, DOES NOT FOLLOW COMMANDS I-RECOMMEND PLACING A DOBHOFF AND STARTING GLUCERNA 1.2 AT A GOAL RATE OF 60 ML/HR W/ 125 ML WATER FLUSH 4 TIMES DAILY. THIS WILL PROVIDE 1728 KCALS, 86 GM PROTEIN, AND 1159 ML FREE WATER + WATER FLUSHES. M/E-START APPROPRIATE DIET RX WITHIN 24-48 HOURS 1)F/U DIET RX AND POC IN 2-3 DAYS 2)ASSIST NEEDED
--- NOTE | 2016-11-04 16:25 | NUR ---
Significant Event: Obtunded, opens eyes with repositioning; moans with any movement. VSS, SBPs 120-150s, HRs 80-100s, on room air. No obvious s/s of pain; does moan with movement but quiet once down with movement. EEG, MRI et ultrasound of abd/pelvis today; no reports as of this time. Alfonso patent, 450 ml of dk yellow urine out this shift. Reposition every 2 hours side to side. WOC up et seen patient today. Follow up:cdiff sample if having loose stools; lumbar puncture with anesthia tomorrow
[2016-11-04 18:48] LABS: PERITONEAL FLUID TURBIDITY CLEAR (CLEAR)
[2016-11-04 19:37] LABS: ALBUMIN 2.3 gm/dL (3.5-5.0); TOTAL BILIRUBIN 1.2 mg/dL (0.0-1.5)
[2016-11-04 19:38] LABS: TOTAL PROTEIN 5.4 g/dL (6.0-8.4)
[2016-11-04 20:22] LABS: % PERITONEAL FLUID MONO/MACRO 23 % (0-0); % PERITONEAL FLUID NEUT 36 % (0-25)
--- NOTE | 2016-11-05 03:09 | NUR ---
Significant Event:PT RESTED WELL DURING SHIFT. RESPONDS TO PAIN AND VOICE. DID SHOW MORE MOVEMENT TO LEFT HAND, IS MOVING HANDS ENOUGH PT WAS ABLE TO GET IV TO RIGHT HAND OUT. MOANS AT TIMES. IV TO RIGHT INNER WRIST RUNNING 75ML/HR LR. VSS.CONTINUES TO BE ON ROOM AIR. LUNG SOUND CLEAR/DIMINSHED. TURN EVERY 2 HOURS AND PRN. 4X4 GAUZE AND TEGADERM C/D/I TO RIGHT LOWER ABDOMEN FROM PARACENTSIS 11-04.WILL HAVE LUMBAR PUNCTURE TODAY 11-05. Follow up:[facility] NEEDS CALLED TODAY TO OBTAIN RECORDS.
[2016-11-05 03:54] LABS: BASOPHIL % 0.4 %; EOSINOPHIL # 0.1 K/uL (0.0-0.5); EOSINOPHIL % 0.6 %; HEMOGLOBIN 11.6 g/dL (10.0-15.0); IMMATURE GRANULOCYTE # 0.1 K/uL (0.0-0.3); IMMATURE GRANULOCYTE % 0.9 %; LYMPHOCYTE # 0.9 K/uL (0.8-4.0); LYMPHOCYTE % 8.9 %; MCH 23.3 pg (27.0-34.0); MCHC 30.5 gm/dL (32.0-36.5); MCV 76.5 fl (83.0-98.0); MONOCYTE # 0.8 K/uL (0.0-1.0); MONOCYTE % 7.4 %; MPV 9.6 fl (9.4-12.4); NEUTROPHIL # (ANC) 8.5 K/uL (1.8-7.8); NEUTROPHIL % 81.8 %; NRBC % 0 /100WBC (0-0.00); PLATELET COUNT 152 K/uL (150-450); RBC 4.97 M/uL (3.50-5.50); RDW-CV 19.6 % (11.9-14.6); WBC 10.4 K/uL (4.0-11.0)
[2016-11-05 04:21] LABS: BLOOD UREA NITROGEN 31 mg/dL (6-24); CALCIUM 10.5 mg/dL (8.5-10.5); CO2 21 mMol/L (22-32); CREATININE 0.9 mg/dL (0.5-1.1); ESTIMATED GFR (MDRD EQUATION) > 60; POTASSIUM 4.2 mMol/L (3.7-5.1)
[2016-11-05 04:22] LABS: ANION GAP 13.2 (10.0-19.0); CHLORIDE 118 mMol/L (96-110); SODIUM 148 mMol/L (135-145)
[2016-11-05 10:40] LABS: BLOOD URINE 10 /UL (NEGATIVE); COLOR URINE YELLOW (YELLOW); GLUCOSE URINE NEGATIVE (NEGATIVE); KETONE URINE 5 mg/dL (NEGATIVE); LEUKOCYTES URINE 25 /UL (NEGATIVE); NITRITE URINE NEGATIVE (NEGATIVE); PROTEIN URINE 30 mg/dL (NEGATIVE); TURBIDITY URINE CLEAR (CLEAR); UROBILINOGEN URINE 8 mg/dL (NORMAL)
[2016-11-05 10:46] LABS: EPITHELIAL URINE 0-2 #/HPF (NEGATIVE); RBC URINE 0-2 #/HPF (NEGATIVE)
[2016-11-05 10:47] LABS: BACTERIA URINE FEW (NEGATIVE)
--- NOTE | 2016-11-05 12:01 | NUR ---
SPeech Tx Note: Per RN, pt is showing no change; pt going for lumbar pucture today; will f/u to see if pt becomes more responsive and speech Tx can initiate evaluation. Yesenia Parisi M.A. NAYAN-SYSTEM ENGINEER
[2016-11-05 12:58] LABS: INR - (THERAPEUTIC) 2.36 (0.92-1.07)
--- NOTE | 2016-11-05 14:53 | NUR ---
Pt. in room with radiology completing procedure. Pt. observed cont'd unresponsive with no interaction with radiology during procedure. Per chart review unable to complete lumbar puncture and ? [facility] transfer if no change. ST plan to cont. to f/u and evaluate when pt. appropriate.
--- NOTE | 2016-11-05 15:16 | NUR ---
POWERGLIDE ATTEMPTED X1 IN LT UPPER ARM BY CHAIM QUIROZ. UNABLE TO THREAD POWERGLIDE. POWERGLIDE SUCCESSFULL ON RT UPPER ARM. GOOD BLOOD RETURN BUT FLUSHES SLUGGISHLY.
--- NOTE | 2016-11-05 16:15 | NUR ---
No family present. Have reviewed her chart and talked with patient's nurse. Patient continues to be unresponsive and moans but does not talk. Nurse has been in contact with patient's brother for consents, etc. Per demographics patient lives alone in [place]. Did receive a call yesterday from a friend of patient's. She says her helps patient with tasks at her apartment that patient can not do and has built ramps into her home for both entrances to her apartment. She says patient spent about 8 months last year out of her home having her diane AKA surgery, time at [facility] and SNF before returning home earlier this year. She says patient has a brother and nephews in [place] she is close to. She says patient works but her scooter has been broken and she has not been able to work. Friend says Claudia HOUSTON is working on getting the scooter fixed. Will follow.
--- NOTE | 2016-11-05 16:59 | NUR ---
Significant Event: PT. RESPONDS TO PAIN ONLY, WILL MOVE LEFT ARM AT TIMES, PT. WILL MOAN WHEN REPOSITIONING. VSS ON ROOM AIR. NOT ABLE TO DO LUMBAR PUNCTURE TODAY D/C INR LEVEL, IV VITAMIN K GIVEN X1. PT. REPOSITIONS Q2HR, ALOE TO BUTTOCK ULCERS. NG TUBE PLACED FOR MEDS, CLAMPLED. NEW PERIPHERAL IV TO RIGHT WRIST & POWER GLIDE TO RIGHT UPPER ARM-FLUSHES SLUGGISH/GOOD BLOOD RETURN. IVF'S CHANGED TODAY, CONTINUES ON IV ABX'S. PICKETT PATENT WITH 600mL UOP. ACCUCHECKS CONTINUE Q6HR, NO COVERAGE GIVEN TODAY. POSSIBLE TRANSFER TO [facility] IN AM IF NOT GETTING BETTER. Follow up: CONTINUE WITH POC.
[2016-11-06 04:16] LABS: BASOPHIL % 0.2 %; EOSINOPHIL % 0.3 %; HEMATOCRIT 39.5 % (33.0-46.0); HEMOGLOBIN 12.1 g/dL (10.0-15.0); IMMATURE GRANULOCYTE # 0.1 K/uL (0.0-0.3); IMMATURE GRANULOCYTE % 0.9 %; LYMPHOCYTE # 1.1 K/uL (0.8-4.0); LYMPHOCYTE % 9.1 %; MCH 23.6 pg (27.0-34.0); MCHC 30.6 gm/dL (32.0-36.5); MCV 77.1 fl (83.0-98.0); MONOCYTE # 0.9 K/uL (0.0-1.0); MONOCYTE % 7.5 %; NEUTROPHIL # (ANC) 9.9 K/uL (1.8-7.8); NRBC % 0 /100WBC (0-0.00); PLATELET COUNT 173 K/uL (150-450); RBC 5.12 M/uL (3.50-5.50); RDW-CV 20.5 % (11.9-14.6); WBC 12.1 K/uL (4.0-11.0)
[2016-11-06 04:28] LABS: INR - (THERAPEUTIC) 1.21 (0.92-1.07); PROTIME 12.7 SECONDS (9.8-11.4)
[2016-11-06 04:30] LABS: CALCIUM 10.4 mg/dL (8.5-10.5); CREATININE 1.2 mg/dL (0.5-1.1); POTASSIUM 3.9 mMol/L (3.7-5.1)
[2016-11-06 04:32] LABS: ANION GAP 11.9 (10.0-19.0)
--- NOTE | 2016-11-06 05:29 | NUR ---
Significant Event: PATIENT RESPONDS TO VOICE. TOTAL LIFT, TURNED Q2 HOURS. SINUS HR IN THE UPPER 90'S TO LOW 100'S. ALL OTHER VSS ON RA. LUNGS REMAIN SLCIGHTLY COARSE AT TIMES. LAST DOSE OF ENULOSE GIVEN. PICKETT INTACT WITH 450 ORANGE/JEROME OUTPUT. MEDS CRUSHED THROUGH NG TUBE, OTHERWISE NG TUBE CLAMPED. INR HAS DECREASED TO 1.21, THERFORE POSSIBLE LUMBAR PUNCTURE AT SOME POINT. ALSO CONSIDERING TRANSFER TO [facility]. Follow up: ID DOC TO SEE TODAY.
--- NOTE | 2016-11-06 15:39 | NUR ---
Pt. cont's to be unresponsive t/o day. Nsg. reported pt. only responds to pain with physical reaction, but no following commands or interaction. ST plan to follow-up and assess when pt. able to participate safely.
--- NOTE | 2016-11-06 17:25 | NUR ---
Significant Event: D/O X3. MOANS & GROANS WITH TURNS AND ASSESSMENTS. NG CLAMPED TO LEFT NARE. RIGHT UPPER FA MIDLINE SL'D. RIGHT WRIST PIV SL'D. ENULOSE VIA NG AND RECTALLY GIVEN TODAY. X7 INCONTINENT LIQUID STOOLS. PICKETT CATHETER 525 ML UOP, ORANGE. FREQUENT ORAL CARES. TURN Q2H. LUMBAR PUNCTURE DONE. MRI OF BRAIN DONE. PARACENTESIS DONE. VSS. ROOM AIR. IDD CONSULTED, IV ANTIBIOTICS CHANGED. DR. JOHN CONSULTED. Follow up:
[2016-11-07 04:08] LABS: BASOPHIL % 0.4 %; EOSINOPHIL # 0.1 K/uL (0.0-0.5); HEMATOCRIT 39.6 % (33.0-46.0); IMMATURE GRANULOCYTE # 0.1 K/uL (0.0-0.3); IMMATURE GRANULOCYTE % 0.6 %; LYMPHOCYTE # 0.9 K/uL (0.8-4.0); LYMPHOCYTE % 10.2 %; MCH 23.6 pg (27.0-34.0); MCHC 30.3 gm/dL (32.0-36.5); MCV 77.8 fl (83.0-98.0); MONOCYTE # 0.6 K/uL (0.0-1.0); MONOCYTE % 6.7 %; NEUTROPHIL # (ANC) 7.3 K/uL (1.8-7.8); NEUTROPHIL % 81.1 %; NRBC % 0 /100WBC (0-0.00); RBC 5.09 M/uL (3.50-5.50); RDW-CV 20.8 % (11.9-14.6); WBC 8.9 K/uL (4.0-11.0)
[2016-11-07 04:09] LABS: PLATELET COUNT 137 K/uL (150-450)
--- NOTE | 2016-11-07 04:20 | NUR ---
vss on ra, afebrile. bm x3 d/t lactulose given. do have order for flexiseal if need be. has sores on bottom-aloe vesta to. TOLU midline with abx running otherwie sl'd. r wrist iv sl'd. RA. q2 turn. Plan: Palliative to see today.
[2016-11-07 04:21] LABS: INR - (THERAPEUTIC) 1.19 (0.92-1.07); PROTIME 12.5 SECONDS (9.8-11.4)
[2016-11-07 04:24] LABS: BLOOD UREA NITROGEN 25 mg/dL (6-24); CALCIUM 10.6 mg/dL (8.5-10.5); CO2 23 mMol/L (22-32); CREATININE 0.9 mg/dL (0.5-1.1); POTASSIUM 3.5 mMol/L (3.7-5.1)
[2016-11-07 04:27] LABS: ANION GAP 12.5 (10.0-19.0); CHLORIDE 122 mMol/L (96-110); ESTIMATED GFR (MDRD EQUATION) > 60; SODIUM 154 mMol/L (135-145)
--- NOTE | 2016-11-07 11:05 | NUR ---
A - NUTRITION F/U. POORLY RESPONSIVE. NA+ 157, GLU 139, BUN/FARM GENERAL MANAGER 25/0.9. PT W/ 1+ EDEMA. SORES TO BOTTOM. NG CLAMPED. (+) BS. PALLIATIVE CONSULT. D - AT RISK W/ INADEQUATE ORAL INTAKE R/T NPO SINCE ADMIT. I - GOAL: ALTERNATE FEEDING ROUTE. M/E - REC GLUCERNA 1.2 TO RUN AT GOAL RATE OF 60 ML/HR W/ 125 ML H20 FLUSH EVERY 6 HRS. WILL F/U IN 3-5 DAYS.
[2016-11-07 18:41] LABS: BLOOD UREA NITROGEN 25 mg/dL (6-24); CO2 22 mMol/L (22-32); CREATININE 0.9 mg/dL (0.5-1.1); ESTIMATED GFR (MDRD EQUATION) > 60; POTASSIUM 3.8 mMol/L (3.7-5.1)
[2016-11-07 18:42] LABS: ANION GAP 10.8 (10.0-19.0); CHLORIDE 120 mMol/L (96-110); SODIUM 149 mMol/L (135-145)
--- NOTE | 2016-11-07 18:55 | NUR ---
Significant Event: D/O X3. RESPONSIVE TO PAIN, WITHDRAWS. PIV SL'D TO RIGHT WRIST. MIDLINE TO RIGHT UPPER FA WITH D5 IN WATER @ 150 ML/HR. VSS. ROOM AIR. TURN Q2H. FLEXISEAL PLACED. PICKETT PATENT WITH 300 ML UOP. PALLIATIVE CARE CONSULTED TODAY, PT REMAINS FULL CODE AT THIS TIME. NG CLAMPED TO LEFT NARE, NO RESIDUAL. FREQUENT ORAL CARES NEEDED, LARGE AMOUNT OF SLOUGH MATERIAL REMOVED FROM MOUTH. Follow up: CONTINUE TO MONITOR CLOSELY.
--- NOTE | 2016-11-08 04:37 | NUR ---
Pt remains obtunded. VSS on RA, afebrile. Alfonso with 150ml out, flexiseal with approx 500ml out. NG to L nare with tube feed, Jevity 1.5 stacia at 15ml started. 250ml H2O flushes q4 hours. Residuals-1900- 0,2300-50,0200-5. FSBS at 2300-186- received 2 units of novolog moderate scale. q2 turn, total lift, ble bka's-elevated. bottom extremely excoriated with open areas. sensicare and aloe vesta in the room. she is to have lactulose via NG tube 2-3 times/day. palliative saw yesterday and spoke with brother-cont aggressive treatment at this time. if no improvement with starting jevity and doing lactulose then he will consider comfort cares. considering PEG placement. Plan: con't "aggressive" treatment
[2016-11-08 05:59] LABS: BASOPHIL # 0.1 K/uL (0.0-0.2); BASOPHIL % 0.5 %; EOSINOPHIL # 0.1 K/uL (0.0-0.5); EOSINOPHIL % 1.2 %; HEMATOCRIT 39.1 % (33.0-46.0); IMMATURE GRANULOCYTE # 0.1 K/uL (0.0-0.3); LYMPHOCYTE # 1.3 K/uL (0.8-4.0); LYMPHOCYTE % 11.5 %; MCH 23.9 pg (27.0-34.0); MCHC 30.7 gm/dL (32.0-36.5); MCV 77.7 fl (83.0-98.0); MONOCYTE # 0.9 K/uL (0.0-1.0); MONOCYTE % 7.4 %; MPV 10.2 fl (9.4-12.4); NEUTROPHIL % 78.4 %; NRBC % 0 /100WBC (0-0.00); PLATELET COUNT 131 K/uL (150-450); RBC 5.03 M/uL (3.50-5.50); RDW-CV 20.3 % (11.9-14.6); WBC 11.4 K/uL (4.0-11.0)
[2016-11-08 06:16] LABS: ALBUMIN 2.7 gm/dL (3.5-5.0); ANION GAP 14.3 (10.0-19.0); CALCIUM 10.3 mg/dL (8.5-10.5); POTASSIUM 4.3 mMol/L (3.7-5.1); TOTAL PROTEIN 5.5 g/dL (6.0-8.4)
[2016-11-08 06:19] LABS: TOTAL BILIRUBIN 0.9 mg/dL (0.0-1.5)
--- NOTE | 2016-11-08 16:41 | NUR ---
Significant Event: STILL NO CHANGE IN PATIENT CONDITION, RESPONDS TO VOICE ONLY, WILL MOVE LEFT ARM AT TIMES, DID SHE HER MOVE LEFT LEG SPONTANSEOUSLY THIS AM, WILL MOAN WITH POSITIONING. PT. WAS MADE COMFORT CARES THIS AFTERNOON. VSS ON ROOM AIR. REPOSITION PATIENT Q2HR, ALOE VESTA TO BUTTOCKS & NDER BREASTS. RIGHT UPPER ARM POWER GLIDE & WRIST IV ARE SALINE LOCKED. PICKETT INTACT WITH 325ml UOP. FLEXISEAL INTACT, ONLY SCANT AMOUNT OF BM OUT TODAY. NG TUBE TO LEFT NARE IS CLAMPED. Follow up: CONTINUE WITH POC.
--- NOTE | 2016-11-09 04:46 | NUR ---
Significant Event: MOANING AT TIMES ALL NIGHT. REPOSITIONED FROM SIDE TO SIDE. REMAINS ON ROOM AIR. DOES WITHDRAW TO PAIN. MOVES THE L) ARM VERY SLIGHTLY. FLEXISEAL CONTINUES. EYES OPEN SPONTANEOUSLY BUT RARELY. Follow up:
--- NOTE | 2016-11-09 18:47 | NUR ---
Significant Event:Patient has not been verbel. Does make moaning sounds at times. Doesn't follow commands. Have repositioned for comfort. Has had an occassional visitor. Remains on comfort cares. Tele is off, NG tube and rectal tube were dc'd, pulse ox off. No call from family. Family friend Kalee has called for updates and stopped in to see patient. Alfonso remains in place. Is on room air. Follow up:Continue comfort cares
--- NOTE | 2016-11-10 05:12 | NUR ---
Significant Event: OPENS EYES TO SOUND. BRISK ROUND PUPILS. STILL OBTUNDENT. NON VERBAL. DOES MOAN AND GROIN WHEN BEING REPOSITIONED. REPOSTIONED Q 2 HRS SIDE TO SIDE. NOT ABLE TO FOLLOW SIMPLE COMMANDS BUT BITE DOWN ON SPONGE WHEN CLEANING HER MOUTH AND MOVED L) UPPER ARM. COMFORT CARES. VITALS ONCE A SHIFT . HAD A SLIGHT TEMP OF 99.2. HR 95. 100/55. 95 % ON RA. IV TO R) WRIST AND MIDLINE TO R) UPPER ARM SL. MORPHINE GIVEN X1. LAST DOSE WAS AT 0259. PATIENT WAS ABLE TO RELAX MORE AND REST COMFORTABLY. ALSO GAVE LEVSIN X2 AND ATROPINE TO TRY TO HELP WITH SOME OF THE INCREASED SECRETIONS. PICKETT PRESENT WITH 150 MLS OUT. NO BM THIS SHIFT. Follow up: CONTINUE WITH COMFORT CARES.
--- NOTE | 2016-11-10 19:22 | NUR ---
Significant event: Obtunded, opens eyes to sound, touch. Does not follow commands. Does moan with reposistioning, morphine given x 3 this shift. Atropine given x 1, Levisin x 1. Alfonso present, had 75 ml kimberli urine. Pulses 2+, warm. Brother Caleb called for update of patient this shift. Follow Up: Monitor for pain, would give morphine prior to reposistioning.
--- NOTE | 2016-11-11 06:13 | NUR ---
Significant Event: Patient responds to verbal/painful stimuli. Does not follow commands. Opens eyes and moans with turns. Morphine given x4 with turns. Alfonso with dark urine. 60 ml urine output. Follow up: repositioning,
--- NOTE | 2016-11-11 17:59 | NUR ---
Spoke with [facility] earlier today and patient now on comfort cares. She tried to call her brother and left VMM. Talked to Crystal DAWSON and asks about next level of care for patient. Called patient's insurance to check on benefits, she has 30 skilled days per calendar year and is eligible for services billed by Hospice. Not clear if insurance will pay at a hospice facility or not. Left message at BS asking if she has a case mgt assigned and for assistance in understanding her benefits. Called [facility] in [place] and spoke with Georgina. She says they are supported by 4 facilities and the work with insurance is done by the facilities. She gives be the contact information for [facility] and [facility]. Attempted to call her brother Caleb and no answer and VM was full. Did receive a return call from her brother/Caleb JOHNSON. Talked with him regarding next steps and need to look at options for care. Told him what I know from [facility] and what I am still trying to find out. Talked about options of skilled facilities in [place], Hospice facilities in [place] and looking at facilities closer to family. Told him ambulance transport would not be covered and not sure if her BCBS would pay anything out of state or not. He says he is from the [place] area but would probably want her in the [place] of [place] in the [place] area as it is about [address] between him and their sister and a number of friends and family in the area. He wants to think about things and talk with his sister. Says he knew we would be calling about next steps. He is thinking about driving to [place] the end of the week. Will follow.
--- NOTE | 2016-11-11 19:47 | NUR ---
Significant Event: Patient is comfort cares. Repositioned every 2 hours. Moans when touched. Morphine given for pain X 1 at 1646. Alfonso catheter for comfort measures. 50 ml out this shift. No bowel movements. Follow up:
--- NOTE | 2016-11-12 04:50 | NUR ---
Significant Event: PATIENT OPENED HER EYES MORE THIS SHIFT. MOANING AND GROINING WITH MOVEMENT. STILL OBTUNDENT. NON VERBAL. CANT FOLLOW SIMPLE COMMANDS. TURNED Q 2 HRS SIDE TO SIDE. DID ORAL CARES Q 2 HRS. APPLIED LOTION TO BUTTOCKS. VITAL SIGN ONCE A SHIFT. HR 93. 101/55. 94% ON RA. IV TO R) WRIST SL AND MIDLINE TO R) UPPER ARM SL. MORPHINE GIVEN X4 FOR MOANING. PATIENT WAS ABLE TO RELAX AND REST OFF AND ON THROUGHOUT THE SHIFT. PICKETT PRESENT WITH 100 MLS OF DARK JEROME URINE OUT. NO BM. Follow up: CONTINUE WITH COMFORT CARES.
--- NOTE | 2016-11-12 10:15 | NUR ---
PT IS COMFORT CARES. WILL ASSIST NEEDED.
--- NOTE | 2016-11-12 13:00 | NUR ---
Spoke with David at [facility] this a.m. and she says if patient goes to to a nursing facility with hospice they will cover the hospice but not rooom and board. She says she may have benefits to cover at a hospice house, but usually that facility works with them on the coverage. If patient goes out of state, she would be out of network. Talked to Kristen Medina (palliative care REGISTERED PUBLIC SUR[employer]YOR) and Crystal DAWSON and when they talk with patient's brother they will also let him know we need to be moving forward with looking at placement for her. Will follow.
--- NOTE | 2016-11-12 16:30 | NUR ---
Significant event: Obtunded, opens eyes to voice. No verbal response, does not follow commands, pupils 3 mm, sluggish. Mottling to back. Sensicare to ulcers on bottom, and turning patient side to side. Morphine for pain, does groan when turning. No gag reflex when suctioning patient, atropine drops have been given Q4H this shift, lung sounds slightly coarse in upper lobes. Skin warm, pulses 2+. BP this AM 115/55, temp 99.2 tympanic, 95-98% RA, HR 90-105. Follow Up: Continue current POC
--- NOTE | 2016-11-12 16:52 | NUR ---
ROCIO left for [facility] in [place] and [facility] in [place]. Nerissa talked to Latricia at [facility] and she says the process for [facility] in [place] is to fax information to one of the 3 facilities. They review the information and then work with the Hospice House and patient's insurance, to see if appropriate and what insurance will cover. Will fax information to Latricia at [facility]. Did recieve call from She at [facility] and she says they provide different levels of care at [facility], but needs to review information before saying if they can meet patient's needs or not. Will follow.
--- NOTE | 2016-11-13 04:35 | NUR ---
Significant Event: ON COMFORT CARES. OPENS EYES TO LOUD VERBAL STIMULI, DOES NOT TRACK. PUPILS SLUGGISH. MOTTLING REMAINS ON BACK ONLY. BP 86/55, HR 101, 02 92% ON RA. TURNED Q2 AND PER FAMILY REQUEST. 125 ML UOP. SHE HAS ONLY HAD 1 PERIOD OF MOANING OR ANY SIGNS OF BEING UNCOMFORTABLE. 2 MG MORPHINE GIVEN AT 2348. LEVSIN SL AND 0.5 MG ATIVAN GIVEN AT 0040, SINCE THAT ADMINISTRATION SHE HAS BEEN RESTING WELL THE REST OF THE EVENING. Follow up:
== END 2016-11-13 16:05 | disposition expired | DRG 871 ==
LOC: GMED 13:17 → GPCU 16:34 → GICU 11-02 12:02 → GPCU 11-03 06:54
PROVIDERS: Emergency Medicine; Internal Medicine; ADMIT Hospitalist
PROC: 0W9G3ZX Drainage of Peritoneal Cavity, Percutaneous Approach, Diagnostic (ICD-10-PCS; principal; 2016-11-06)
DX: A41.9 Sepsis, unspecified organism (principal); G93.41 Metabolic encephalopathy; L89.153 Pressure ulcer of sacral region, stage 3; E87.0 Hyperosmolality and hypernatremia; C78.7 Secondary malignant neoplasm of liver and intrahepatic bile duct; R18.8 Other ascites; E11.21 Type 2 diabetes mellitus with diabetic nephropathy; N39.0 Urinary tract infection, site not specified; E11.42 Type 2 diabetes mellitus with diabetic polyneuropathy; Z89.512 Acquired absence of left leg below knee; Z89.511 Acquired absence of right leg below knee; F41.9 Anxiety disorder, unspecified; F32.9 Major depressive disorder, single episode, unspecified; Z85.42 Personal history of malignant neoplasm of other parts of uterus; Z90.722 Acquired absence of ovaries, bilateral; Z92.29 Personal history of other drug therapy; Z93.3 Colostomy status; Z86.711 Personal history of pulmonary embolism; E86.0 Dehydration; R32 Unspecified urinary incontinence; E11.622 Type 2 diabetes mellitus with other skin ulcer; I48.2 Chronic atrial fibrillation; Z79.01 Long term (current) use of anticoagulants; L30.4 Erythema intertrigo; R65.20 Severe sepsis without septic shock; F17.210 Nicotine dependence, cigarettes, uncomplicated; G43.909 Migraine, unspecified, not intractable, without status migrainosus; Z66 Do not resuscitate; Z51.5 Encounter for palliative care
CPT/HCPCS: A9577; C1751; C9113; G0480; J0133; J0744; J1650; J1956; J2020; J2060; J2185; J2250; J2270; J2310; J3370; J3480; J7030; J7040; J7050; J7060; J7120; P9047; Q9967

== ENCOUNTER → 2016-11-01 | Outpatient (CLI) | payer BC ==
[~2016-11-01] MED LIST: AMARYL2 MG PO; AMARYL4 M1 PO; COLACE100 MG PO; CULTURELLE1 CAP PO; DAKINS 0.25% (473 ML TOP; DITROPAN XL10 MG PO; DOXYCYCLINE100 MG PO; DULCOLAX5 MG PO; ELIQUIS5 MG PO; JANUVIA 100 MG100 MG PO; K-TAB 10MEQ10 MEQ PO; LACTINEX (FLORA1 TAB PO; MEGACE40 MG PO; MEROPENEM-500 MG/50 IV; MYCOSTATIN CREA30 GM; STERILE WATER TOP; TYLENOL EXTRA500 MG PO; ULTRAM50 MG PO
== END | disposition disaster alternative care site (69) ==
LOC: GAMB 12:48
DX: I63.9 Cerebral infarction, unspecified (principal); R41.82 Altered mental status, unspecified
CPT/HCPCS: A0422; A0425; A0427